=== PATIENT | female | born 1955 | race Caucasian/White ===

== ENCOUNTER 2017-04-13 17:55 | Emergency (ER) | payer MEDICARE ==
[2017-04-13 18:11] VITALS: BP 120/68; PULSE 68; RESP 18; TEMP 97.9
--- NOTE | 2017-04-13 18:38 | XR ---
EXAMINATION TYPE: XR knee complete LT DATE OF EXAM: 04/13/2017 6:32 PM COMPARISON: NONE HISTORY: Knee pain TECHNIQUE: 3 views FINDINGS: I see no displaced fracture. There is minimal subtle lucency at the head of the fibula that could relate to a nondisplaced fracture. There is probably a small knee joint effusion. Joint space s are normal. IMPRESSION: Possible nondisplaced fracture of the neck of the fibula head. Small knee joint effusion.
--- NOTE | 2017-04-13 18:41 | XR ---
EXAMINATION TYPE: XR wrist complete LT DATE OF EXAM: 04/13/2017 6:35 PM COMPARISON: NONE HISTORY: Pain TECHNIQUE: 4 views FINDINGS: There is posterior subluxation of the lunate and scaphoid on the lateral view. There is pro bably a chip fracture of the posterior distal radius on the lateral view. Distal ulna appears intact. IMPRESSION: There is evidence of a partial posterior lunate dislocation. Chip fracture of the posteri or distal radius. Osteoarthritis noted at the first carpometacarpal joint.
--- NOTE | 2017-04-13 18:42 | ED ---
Fall HPI - General Chief Complaint: Fall Stated Complaint: LEFT WRIST AND KNEE INJURY FROM FALL Time Seen by Provider: 04/13/17 18:19 Source: patient, RN notes reviewed, old records reviewed Mode of arrival: ambulatory - History of Present Illness Initial Comments: Is a 62-year-old female presents emergency Department with chief complaint of left wrist and left knee pain after falling while tripping on occur. She denies any headache or loss of consciousness. Denies any head injury. Patient reports that she fell with outstretched hand. She reports that also has irritation and pain on the right hand. Patient states that there is no decreased range of motion with wrist or hands her knees. She states that she broke her wrist previously. She denies any previous injuries. Patient reports she has a small abrasion over the knee.Patient denies any recent fever, chills, shortness of breath, chest pain, back pain, abdominal pain, nausea vomiting, numbness or tingling, dysuria or hematuria, constipation or diarrhea, headaches or visual changes, or any other current symptoms - Related Data Home Medications Medication Instructions Recorded Confirmed FLUoxetine HCL [PROzac] 10 mg PO DAILY 03/17/15 10/23/16 Lisinopril [Prinivil] 5 mg PO DAILY 03/17/15 10/23/16 ALPRAZolam [Xanax] 0.25 mg PO BID PRN 04/18/16 10/23/16 Ibuprofen [Motrin] 200 mg PO Q6HR PRN 04/18/16 10/23/16 Meclizine [Antivert] 12.5 mg PO DAILY 04/18/16 10/23/16 Previous Rx's Medication Instructions Recorded Omeprazole [PriLOSEC] 40 mg PO AC-BRKFST #30 cap 03/17/15 Allergies Allergy/AdvReac Type Severity Reaction Status Date / Time amoxicillin Allergy Unknown Verified 04/13/17 18:11 azithromycin Allergy Rash/Hives Verified 04/13/17 18:11 erythromycin base Allergy Unknown Verified 04/13/17 18:11 methylprednisolone Allergy Unknown Verified 04/13/17 18:11 [From Medrol] ofloxacin [From Floxin] Allergy Rash/Hives Verified 04/13/17 18:11 Sulfa (Sulfonamide Allergy Rash/Hives Verified 04/13/17 18:11 Antibiotics) sulfamethoxazole Allergy Rash/Hives Verified 04/13/17 18:11 [From Bactrim] trimethoprim [From Bactrim] Allergy Rash/Hives Verified 04/13/17 18:11 "mycin" family Allergy Unknown Uncoded 04/13/17 18:11 Review of Systems ROS Statement: Those systems with pertinent positive or pertinent negative responses have been documented in the HPI. ROS Other: All systems not noted in ROS Statement are negative. 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 No acute distress. Limitations: no limitations General appearance: alert, in no apparent distress Head exam: Present: atraumatic, normocephalic, normal inspection Eye exam: Present: normal appearance, PERRL, EOMI. Absent: scleral icterus, conjunctival injection, periorbital swelling ENT exam: Present: normal exam, mucous membranes moist Neck exam: Present: normal inspection. Absent: tenderness, meningismus, lymphadenopathy Respiratory exam: Present: normal lung sounds bilaterally. Absent: respiratory distress, wheezes, rales, rhonchi, stridor Cardiovascular Exam: Present: regular rate, normal rhythm, normal heart sounds. Absent: systolic murmur, diastolic murmur, rubs, gallop, clicks GI/Abdominal exam: Present: soft, normal bowel sounds. Absent: distended, tenderness, guarding, rebound, rigid Extremities exam: Present: normal inspection, full ROM, normal capillary refill. Absent: tenderness, pedal edema, joint swelling, calf tenderness Left Upper Arm exam: Present: normal inspection, full ROM Elbow exam: Present: normal inspection, full ROM Forearm Wrist exam: Present: normal inspection, full ROM Hand Wrist exam: Present: normal inspection, full ROM Neuro motor exam: Present: wrist extension intact, thumb opposition intact, thumb IP flexion intact, thumb adduction intact, fingers 2-5 abduction intact Vascular: Present: normal capillary refill Left Upper Leg exam: Present: normal inspection, full ROM Knee exam: Present: normal inspection, full ROM, tenderness (over medial meniscus), abrasion (minor abrasion) Lower Leg exam: Present: normal inspection, full ROM Ankle exam: Present: normal inspection, full ROM Foot/Toe exam: Present: normal inspection, full ROM Back exam: Present: normal inspection, full ROM Neurological exam: Present: alert, oriented X3, CN II-XII intact, normal gait Psychiatric exam: Present: normal affect, normal mood Skin exam: Present: warm, dry, intact, normal color. Absent: rash Course Vital Signs 04/13/17 18:07 Temperature 97.9 F Pulse Rate 68 Respiratory 18 Rate Blood Pressure 120/68 O2 Sat by Pulse 99 Oximetry Medical Decision Making - Medical Decision Making s a 62-year-old female presents emergency Department with chief complaint of left wrist and left knee pain after falling while tripping on occur. She denies any headache or loss of consciousness. Denies any head injury. Patient reports that she fell with outstretched hand. She reports that also has irritation and pain on the right hand. Patient states that there is no decreased range of motion with wrist or hands her knees. She states that she broke her wrist previously. She denies any previous injuries. Patient reports she has a small abrasion over the knee. X-rays of the knee and wrist are obtained. Wrist x-ray shows evidence of lunate dislocation. Patient does have a welling and mild deformity. Patient was placed in a volar splint. Patient also seemed knee x-rays which showed possible lucency over the fibular head. Patient was placed in a knee immobilizer. Patient will be discharged with prescription for anti- inflammatory medicine discussed following up with primary care provider and orthopedic physician on Sunday. Patient agrees treatment plan will comply. Discussed be nonweightbearing over her leg or the weekend - Radiology Data Radiology results: report reviewed Evidence of a partial posterior lunate dislocation. Chip fracture of the posterior distal radius. First arthritis noted the first carpal metacarpal joint. No displaced fracture. Minimal subtle lucency at the head of the fibula that could relate to a nondisplaced fracture. There is probably a small minimally the joint effusion. Joint spaces are normal. Impression is a possible nondisplaced fracture of the neck of the fibula head. Small knee joint effusion. Disposition Clinical Impression: Dislocation of lunate bone of wrist, Fracture of head of fibula Disposition: HOME SELF-CARE Condition: Good Instructions: Leg Fracture (ED), Wrist Fracture in Adults (ED) Additional Instructions: Rest, ice, and elevate wrist and knee. Remain in knee immobilizer until in bed. Remain In splint at all times. Patient advised to follow-up with Orthopedic Physician on Sunday. Return to the emergency department if any alarming signs or symptoms occur. Referrals: Jean Marie Pereira MD [Primary Care Provider] - 1-2 days Luigi Romero PAC [PHYSICIAN TURNAROUND ENGINEER] - 1-2 days Time of Disposition: 19:09
== END 2017-04-13 19:08 | disposition home or self-care (01) ==
LOC: EC 17:55
DX: S63.095A Other dislocation of left wrist and hand, initial encounter (principal); S52.502A Unspecified fracture of the lower end of left radius, initial encounter for closed fracture; S82.832A Other fracture of upper and lower end of left fibula, initial encounter for closed fracture; M18.12 Unilateral primary osteoarthritis of first carpometacarpal joint, left hand; M25.462 Effusion, left knee; M79.641 Pain in right hand; I10 Essential (primary) hypertension; F32.9 Major depressive disorder, single episode, unspecified; Z87.891 Personal history of nicotine dependence; Z79.899 Other long term (current) drug therapy; Z88.0 Allergy status to penicillin; Z88.1 Allergy status to other antibiotic agents; Z88.2 Allergy status to sulfonamides; Z88.8 Allergy status to other drugs, medicaments and biological substances; W01.0XXA Fall on same level from slipping, tripping and stumbling without subsequent striking against object, initial encounter; Y93.89 Activity, other specified
CPT/HCPCS: 29125; 99284

== ENCOUNTER → 2017-08-17 | Outpatient (CLI) | payer MEDICARE ==
[2017-08-17 16:36] LABS: Blood Urea Nitrogen 10 mg/dL (7-17); Non-African American GFR(MDRD) >60 (>60 ml/min/1.73 sqM)
== END | disposition home or self-care (01) ==
LOC: LABWHC1 15:56
PROVIDERS: ATTEND Otolaryngology Otology & Neurotology
DX: D33.3 Benign neoplasm of cranial nerves (principal)
CPT/HCPCS: 36415; 82565; 84520

== ENCOUNTER → 2017-08-20 | Outpatient (CLI) | payer MEDICARE ==
--- NOTE | 2017-08-20 07:45 | MR ---
EXAMINATION TYPE: MR brain and iac wo/w con DATE OF EXAM: 08/20/2017 COMPARISON: 08/16/2015 HISTORY: brain stem lesion, bilateral hearing loss, vertigo CONTRAST: Performed utilizing 6.5 mL intravenous Gadavist gadolinium contrast. TECHNIQUE: Multiplanar, multiecho imaging on a 3.0 Veronica magnet is performed through the brain. Atte ntion is paid to the internal auditory canals with thin section imaging. Postcontrast imaging is per formed through the internal auditory canals. FINDINGS:Craniovertebral junction is normal. The pituitary is normal. Flow voids are within the vis ualized intracranial cerebral vasculature. The anterior communicating artery is widely patent. Diffusion-weighted imaging is performed. No suspicious hyperintensity is present to suggest an acute intracranial infarct or acute ischemic area. There is mild periventricular white matter ischemic type changes. A punctate hyperintensity is in the subcortical right parietal lobe. Series 501 image 21. Findings are stable from comparison. Thin section imaging is performed through the internal auditory canals and cerebellar pontine angles. No cerebellar pontine angle masses are evident. The internal auditory canals appear normal without expansion or erosion. No fluid in the mastoid air cell regions are evident. Postcontrast imaging was performed. No suspicious enhancement is evident within the internal audito ry canals or the included portions of the brain. IMPRESSIONS: 1. Mild periventricular white matter changes, stable from 2015. 2. No suspicious internal auditory canal changes. 3. No brainstem abnormality evident.
== END | disposition home or self-care (01) ==
LOC: RADMRIMAIN 06:20
PROVIDERS: ATTEND Otolaryngology Otology & Neurotology
DX: R90.82 White matter disease, unspecified (principal)
CPT/HCPCS: 70553; A9581

== ENCOUNTER → 2018-08-26 | Outpatient (CLI) | payer MEDICARE ==
--- NOTE | 2018-08-27 10:10 | MM ---
Reason for exam: screening (asymptomatic). Last mammogram was performed 2 years and 5 months ago. History: Patient is postmenopausal. Physical Findings: A clinical breast exam by your physician is recommended on an annual basis and results should be correlated with mammographic findings. MG 3D Screening Mammo W/Cad Bilateral CC and MLO view(s) were taken. XCCL view(s) were taken of the left breast. Technologist: RT Marcy (R)(M) Prior study comparison: March 14, 2016, bilateral MG 3d screening mammo w/cad. September 28, 2014, bilateral MG screening mammo w CAD. The breast tissue is heterogeneously dense. This may lower the sensitivity of mammography. Benign calcifications. There is chronic nodularity bilaterally. No significant changes when compared with prior studies. ASSESSMENT: Benign, BI-RAD 2 RECOMMENDATION: Routine screening mammogram of both breasts in 1 year.
== END | disposition home or self-care (01) ==
LOC: RADMAMWWP 13:11
PROVIDERS: ATTEND Family Medicine
DX: Z12.31 Encounter for screening mammogram for malignant neoplasm of breast (principal)
CPT/HCPCS: 77063; 77067

== ENCOUNTER → 2019-04-21 | Outpatient (CLI) | payer MEDICARE ==
--- NOTE | 2019-04-22 10:21 | BD ---
EXAMINATION TYPE: Axial Bone Density DATE OF EXAM: 04/21/2019 COMPARISON: 03/14/2016 CLINICAL HISTORY: Postmenopausal Height: 63.5 IN Weight: 140 LBS FRAX RISK QUESTIONS: History of Fracture in Adulthood: YES LT SHOULDER 58 AND LT HEEL AGE 58 AND LT WRIST AGE 59 Secondary Osteoporosis: 3. Menopause before 45: YES PART HYST AGE 34 RISK FACTORS HISTORY OF: History of Wrist Fracture: LT WRIST AGE 59 Family History of Osteoporosis: YES FATHER, MOTHER Active: MODERATE Diet low in dairy products/other sources of calcium: YES Postmenopausal woman: AGE 34 PARTIAL HYST MEDICATIONS: Additional Medications: IBUPROFEN, VIT D, CALCIUM, BIOTIN, B12,FISH OIL, PROBIOTICS, EXAM MEASUREMENTS: Bone mineral densitometry was performed using the [employer] System. Bone mineral density as measured about the Lumbar spine is: ----- L1-L4(G/cm2): 1.072 T Score Values are as follows: ----- L2: -0.4 ----- L3: -0.5 ----- L4: -1.9 ----- L1-L4: -0.9 Bone mineral density has: Increased 2.9% since study of: 03/14/2016 Bone mineral density about the R hip (g/cm2): 0.720 Bone mineral density about the L hip (g/cm2): 0.721 T Score values are as follows: -----R Neck: -2.3 -----L Neck: -2.3 -----R Total: -2.4 -----L Total: -2.6 Bone mineral density has: Increased 0.1% since study of: 03/14/2016 IMPRESSION: Osteopenia (T Score between -2.5 and -1). There is slightly increased risk of fracture and the patient may be considered for treatment. Re-Screen 2-5 years. NOTE: T-SCORE=SD OF THE YOUNG ADULT MEAN.
== END | disposition home or self-care (01) ==
LOC: RADBDWWP 16:15
PROVIDERS: ATTEND Family Medicine
DX: M85.851 Other specified disorders of bone density and structure, right thigh (principal); M85.852 Other specified disorders of bone density and structure, left thigh; M85.88 Other specified disorders of bone density and structure, other site; Z78.0 Asymptomatic menopausal state
CPT/HCPCS: 77080

== ENCOUNTER 2019-10-10 10:50 | Day surgery (SDC) | payer MEDICARE ==
[2019-10-09 09:32] VITALS: BMI 24.7
[~2019-10-10 10:50] MED LIST: LACTATED RINGERS 1,000 ML IV SCH; LIDOCAINE 1% 20 ML VIAL (10MG/ML) FOR IV START INTRADERMA PRN
[2019-10-10 11:26] VITALS: RESP 16; TEMP 97.7
[2019-10-10] MEDS ORDERED: ALBUTEROL NEBULIZED 2.5 MG/3 ML INHALATION STA (11:41)
[2019-10-10] MEDS ORDERED: PROPOFOL 10 MG/ML 20 ML VIAL IV ONE (12:17)
[2019-10-10] MEDS ORDERED: LIDOCAINE 1% INJ 10MG/ML (20 ML MDV) ONE (12:17)
--- NOTE | 2019-10-10 12:38 | P.PCN ---
Date of Procedure: 10/10/19 Procedure(s) Performed: BRIEF HISTORY: Patient is a 64-year-old pleasant white female scheduled for an elective colonoscopy as a part of prior history of colon polyps. Last colonoscopy was 5 years ago. PROCEDURE PERFORMED: Colonoscopy. PREOPERATIVE DIAGNOSIS: History of colon polyps. IV sedation per Anesthesia. PROCEDURE: After informed consent was obtained, the patient, was brought into the endoscopy unit. IV sedation was administered by Anesthesia under continuous monitoring. Digital rectal examination was normal. Initially the Olympus CF-160 flexible video colonoscope was then inserted in the rectum, gradually advanced into the cecum without any difficulty. Careful examination was performed as the scope was gradually being withdrawn. Ileocecal valve and the appendiceal orifice were visualized and appeared normal. Prep was excellent. Mucosa of the cecum, ascending colon, transverse colon, descending colon, sigmoid colon, and rectum appeared normal. Retroflexion was performed in the rectum and weight 2 internal hemorrhoids were seen. The patient tolerated the procedure well. IMPRESSION: Normal-appearing colon from rectum to cecum with no evidence of colorectal neoplasia. Grade 2 internal hemorrhoids RECOMMENDATIONS: Findings of this examination were discussed with the patient well as her family. She was advised to have a repeat screening colonoscopy in 5 years from now because of the prior history of colon polyps.
[2019-10-10 12:44] VITALS: PULSE 79
[2019-10-10 13:00] VITALS: BP 146/74
== END 2019-10-10 13:33 | disposition home or self-care (01) ==
LOC: ORWHC2ENDO 10:50
PROVIDERS: ATTEND Internal Medicine Gastroenterology
DX: Z12.11 Encounter for screening for malignant neoplasm of colon (principal); K64.1 Second degree hemorrhoids; Z86.010 Personal history of colon polyps; I10 Essential (primary) hypertension; J45.909 Unspecified asthma, uncomplicated; Z87.891 Personal history of nicotine dependence; Z86.73 Personal history of transient ischemic attack (TIA), and cerebral infarction without residual deficits; M19.90 Unspecified osteoarthritis, unspecified site; H91.90 Unspecified hearing loss, unspecified ear; K21.9 Gastro-esophageal reflux disease without esophagitis; Z90.710 Acquired absence of both cervix and uterus; Z79.51 Long term (current) use of inhaled steroids; Z79.899 Other long term (current) drug therapy; Z88.6 Allergy status to analgesic agent; Z88.1 Allergy status to other antibiotic agents; Z88.2 Allergy status to sulfonamides; Z88.8 Allergy status to other drugs, medicaments and biological substances
CPT/HCPCS: 94640; J2001; J2704; G0105; 45378

== ENCOUNTER → 2019-10-13 | Outpatient (CLI) | payer MEDICARE ==
--- NOTE | 2019-10-13 12:05 | CT ---
EXAMINATION TYPE: CT sinus wo con DATE OF EXAM: 10/13/2019 COMPARISON: None HISTORY: Chronic sinusitis CT DLP: 615.[address] of the paranasal sinuses was performed in the axial and coronal planes. Bone and soft tissue settings are submitted. The paranasal sinuses demonstrate normal aeration and development. The paranasal sinuses are free of mucosal thickening or air fluid level. The osteal meatal units are patent bilaterally. The nasal septum is midline. No bony destructive changes are seen within the field of view. IMPRESSION: Normal unenhanced CT of the paranasal sinuses.
== END | disposition home or self-care (01) ==
LOC: RADCTMAIN 11:28
PROVIDERS: ATTEND Otolaryngology
DX: J32.9 Chronic sinusitis, unspecified (principal)
CPT/HCPCS: 70486

== ENCOUNTER → 2019-10-22 | Outpatient (CLI) | payer MEDICARE ==
--- NOTE | 2019-10-24 12:16 | MM ---
Reason for exam: screening (asymptomatic). Last mammogram was performed 1 year and 2 months ago. History: Patient is postmenopausal. Physical Findings: A clinical breast exam by your physician is recommended on an annual basis and results should be correlated with mammographic findings. MG 3D Screening Mammo W/Cad Bilateral CC and MLO view(s) were taken. Prior study comparison: August 26, 2018, bilateral MG 3d screening mammo w/cad. March 14, 2016, bilateral MG 3d screening mammo w/cad. The breast tissue is heterogeneously dense. This may lower the sensitivity of mammography. No significant changes when compared with prior studies. ASSESSMENT: Benign, BI-RAD 2 RECOMMENDATION: Routine screening mammogram of both breasts in 1 year.
== END | disposition home or self-care (01) ==
LOC: RADMAMWWP 13:09
PROVIDERS: ATTEND Family Medicine
DX: Z12.31 Encounter for screening mammogram for malignant neoplasm of breast (principal)
CPT/HCPCS: 77063; 77067

== ENCOUNTER 2020-10-13 08:56 | Day surgery (SDC) | payer MEDICARE ==
[2020-10-11 11:58] VITALS: BMI 22.6
[~2020-10-13 08:56] MED LIST changes: -LIDOCAINE 1% 20 ML VIAL (10MG/ML) FOR IV START INTRADERMA PRN
[2020-10-13] MEDS ORDERED: LIDOCAINE 1% (10MG/ML) FOR IV START INTRADERMA ONE (09:40)
[2020-10-13 09:53] VITALS: RESP 16; TEMP 97
[2020-10-13] MEDS ORDERED: LIDOCAINE 1% INJ 10MG/ML (20 ML MDV) ONE (10:19)
[2020-10-13] MEDS ORDERED: PROPOFOL 10 MG/ML 20 ML VIAL IV ONE (10:19)
--- NOTE | 2020-10-13 10:29 | P.PCN ---
Date of Procedure: 10/13/20 Procedure(s) Performed: BRIEF HISTORY: Patient is a 65-year-old, pleasant, female scheduled for an upper endoscopy as a part of evaluation of long-standing history of GERD years duration.. She is presently on Prilosec 20 mg daily PROCEDURE PERFORMED: Esophagogastroduodenoscopy with biopsy . PREOPERATIVE DIAGNOSIS: [GERD IV sedation per anesthesia. PROCEDURE: After informed consent was obtained, the patient was brought into the endoscopy unit. IV sedation was administered by Anesthesia under continuous monitoring. Initially the Olympus GIF-140 video endoscope was inserted into the mouth. Esophagus intubated without any difficulty. It was gradually advanced into the stomach and duodenum and carefully examined. The bulb and the second part of the duodenum appeared normal. The scope at this time was withdrawn to the stomach, adequately insufflated with air, and upon careful examination, mu cosa of the antrum@gastritis and biopsies were done from this area. There were multiple small polyps noted in the proximal body the stomach which were biopsied. Rest of the body, cardia and the fundus appeared normal. The scope was then withdrawn into the esophagus. The GE junction was located at 41 cm from the incisors. The esophagus appeared normal. There were no erosions or ulcerations seen and the patient tolerated the procedure well. IMPRESSION: 1. Mild antral gastritis 2. Multiple small gastric polyps in the body the stomach status post biopsy 3. Normal-appearing esophagus with no evidence of esophagitis or Holguin's esophagus RECOMMENDATIONS: The findings of this examination were discussed with the patient as well as her family. She was advised to continue with Prilosec 20 mg daily and follow antireflux measures. She can follow up the biopsy results.
[2020-10-13 10:47] VITALS: BP 138/85; PULSE 53
== END 2020-10-13 11:16 | disposition home or self-care (01) ==
LOC: ORWHC2ENDO 08:56
PROVIDERS: ATTEND Internal Medicine Gastroenterology
DX: K29.50 Unspecified chronic gastritis without bleeding (principal); K31.7 Polyp of stomach and duodenum; K21.9 Gastro-esophageal reflux disease without esophagitis; I10 Essential (primary) hypertension; J45.909 Unspecified asthma, uncomplicated; Z88.2 Allergy status to sulfonamides; Z88.8 Allergy status to other drugs, medicaments and biological substances; Z88.5 Allergy status to narcotic agent; Z91.040 Latex allergy status; Z87.891 Personal history of nicotine dependence; Z86.73 Personal history of transient ischemic attack (TIA), and cerebral infarction without residual deficits; Z79.899 Other long term (current) drug therapy
CPT/HCPCS: 88305; 43239; J2001; J2704

== ENCOUNTER 2021-06-29 15:04 | Observation (INO) | payer MEDICARE ==
[2021-06-29] MEDS ORDERED: ASPIRIN 81 MG PO STA (15:50)
--- NOTE | 2021-06-29 16:04 | ED ---
General Adult HPI - General Chief complaint: Chest Pain Stated complaint: Chestpain Time Seen by Provider: 06/29/21 15:24 Source: patient Mode of arrival: wheelchair Limitations: no limitations - History of Present Illness Initial comments: Dictation was produced using [employer] dictation software. please excuse any grammatical, word or spelling errors. Chief Complaint: 66-year-old female presents to the emergency department for chest pain History of Present Illness: 66-year-old female no past medical record her artery disease. She states she does have family history of coronary artery disease. Patient states today while she was at work she began having intermittent episodes of chest pressure. She states that the pain did radiate to her bilateral shoulders. States is substernal. Nonpleuritic. No history of blood clots. Patient states she had multiple episodes today. She went to primary care doctor and had EKG showing nonspecific changes. She was sent to the emergency department for further care. The patient denies any symptoms. Associated nausea and diaphoresis with her chest pain. The ROS documented in this emergency department record has been reviewed and confirmed by me. Those systems with pertinent positive or negative responses have been documented in the HPI. All other systems are other negative and/or noncontributory. PHYSICAL EXAM: General Impression: Alert and oriented x3, not in acute distress HEENT: Normocephalic atraumatic, extra-ocular movements intact, pupils equal and reactive to light bilaterally, mucous membranes moist. Cardiovascular: Heart regular rate and rhythm Chest: Able to complete full sentences, no retractions, no tachypnea Abdomen: abdomen soft, non-tender, non-distended, no organomegaly Musculoskeletal: Pulses present and equal in all extremities, no peripheral e ligia Motor: no focal deficits noted Neurological: CN II-XII grossly intact, no focal motor or sensory deficits noted Skin: Intact with no visualized rashes Psych: Normal affect and mood ED course: 66-year-old well-appearing female percents to the emergency department for evaluation of chest pain. Patient does not have any active chest pain at this time. Signs upon arrival are within acceptable limits. EKG shows ischemic changes to the lateral precordial leads.Repeat EKG was performed showin g no dynamic changes. Still persistent T-wave inversions in the septal lateral precordial leads. Unclearif these changes are chronic or if they're not. Laboratory evaluations obtained. CBC unremarkable. Coag panel is negative. Metabolic panel within acceptable limits. Troponin is negative. Chest x-ray is nonacute. Patient reevaluated bedside at 5 PM is agreeable with admission for cardiac observation, serial troponins and cardiology consultation. Case discussed with son physician Dr. Harrell who is willing to accept patients care. Patient given aspirin. EKG interpretation: Ventricular rate 62, normal sinus rhythm, DE interval 134, QRS 102, QTc 4:30. No DE prolongation, no QTC prolongation, no ST or T-wave changes noted. No EKG for comparison. Overall this EKG is concerning for ischemia. - Related Data Home Medications Medication Instructions Recorded Confirmed Lisinopril [Prinivil] 5 mg PO DAILY 03/17/15 06/29/21 L.acidoph,Paracasei, B.lactis 1 cap PO DAILY 10/09/19 06/29/21 [Probiotic] Loratadine [Claritin] 10 mg PO DAILY 10/09/19 06/29/21 Montelukast [Singulair] 10 mg PO DAILY 10/09/19 06/29/21 Omeprazole [PriLOSEC] 40 mg PO BID 10/09/19 06/29/21 ALPRAZolam [Xanax] 0.5 mg PO Q6H PRN 06/29/21 06/29/21 Aspirin EC [Ecotrin Low Dose] 162 mg PO ONCE PRN 06/29/21 06/29/21 FLUoxetine HCL [PROzac] 40 mg PO DAILY 06/29/21 06/29/21 Ibuprofen [Motrin] 600 mg PO BID PRN 06/29/21 06/29/21 Meclizine [Antivert] 25 mg PO Q12H PRN 06/29/21 06/29/21 Allergies Allergy/AdvReac Type Severity Reaction Status Date / Time amoxicillin Allergy Unknown Verified 06/29/21 16:04 azithromycin Allergy Rash/Hives Verified 06/29/21 16:04 erythromycin base Allergy Unknown Verified 06/29/21 16:04 latex Allergy Itching/aries Verified 06/29/21 16:04 h methylprednisolone Allergy Unknown Verified 06/29/21 16:04 [From Medrol] naproxen [From Naprosyn] Allergy Itching Verified 06/29/21 16:04 ofloxacin [From Floxin] Allergy Rash/Hives Verified 06/29/21 16:04 Sulfa (Sulfonamide Allergy Rash/Hives Verified 06/29/21 16:04 Antibiotics) sulfamethoxazole Allergy Rash/Hives Verified 06/29/21 16:04 [From Bactrim] trimethoprim [From Bactrim] Allergy Rash/Hives Verified 06/29/21 16:04 "mycin" family Allergy Unknown Uncoded 06/29/21 15:10 Review of Systems ROS Statement: Those systems with pertinent positive or pertinent negative responses have been documented in the HPI. ROS Other: All systems not noted in ROS Statement are negative. Past Medical History Past Medical History: Asthma, CVA/TIA, GERD/Reflux, Hypertension, Memory Impairment, Musculoskeletal Disorder, Osteoarthritis (OA), Skin Disorder Additional Past Medical History / Comment(s): Osteoporosis, TIA 5-6 yrs ago-no residual effects, palpitations. Some memory issues at times. Seborrheic Keratosis - have moles all over my body. Vertigo. History of Any Multi-Drug Resistant Organisms: None Reported Past Surgical History: Section, Ear Surgery, Hysterectomy Additional Past Surgical History / Comment(s): Titanium in right ear. Past Anesthesia/Blood Transfusion Reactions: Motion Sickness, Postoperative Nausea & Vomiting (PONV) Additional Past Anesthesia/Blood Transfusion Reaction / Comment(s): Vertigo. Past Psychological History: Depression Smoking Status: Former smoker Past Alcohol Use History: Occasional Past Drug Use History: None Reported - Past Family History Mother Family Medical History: No Reported History Father Family Medical History: Myocardial Infarction ([place]) Brother(s) Family Medical History: Cancer Additional Family Medical History / Comment(s): Lung Cancer. General Exam Limitations: no limitations Course Vital Signs 06/29/21 06/29/21 06/29/21 15:06 15:36 17:00 Temperature 97.9 F Pulse Rate 58 L 62 61 Respiratory 16 20 20 Rate Blood Pressure 110/62 120/86 119/77 O2 Sat by Pulse 99 99 99 Oximetry Medical Decision Making - Lab Data Result diagrams: 06/29/21 15:55 06/29/21 15:55 Lab Results 06/29/21 06/29/21 06/29/21 Range/Units 15:55 15:55 15:55 WBC 10.3 (3.8-10.6) k/uL RBC 3.68 L (3.80-5.40) m/uL Hgb 11.7 (11.4-16.0) gm/dL Hct 33.6 L (34.0-46.0) % MCV 91.4 (80.0-100.0) fL MCH 31.8 (25.0-35.0) pg MCHC 34.8 (31.0-37.0) g/dL RDW 13.5 (11.5-15.5) % Plt Count 336 (150-450) k/uL MPV 8.9 Neutrophils % 78 % Lymphocytes % 17 % Monocytes % 3 % Eosinophils % 0 % Basophils % 1 % Neutrophils # 8.0 H (1.3-7.7) k/uL Lymphocytes # 1.7 (1.0-4.8) k/uL Monocytes # 0.3 (0-1.0) k/uL Eosinophils # 0.0 (0-0.7) k/uL Basophils # 0.1 (0-0.2) k/uL PT 10.2 (9.0-12.0) sec INR 0.9 (<1.2) APTT 22.3 (22.0-30.0) sec Sodium 135 L (137-145) mmol/L Potassium 4.7 (3.5-5.1) mmol/L Chloride 101 (98-107) mmol/L Carbon Dioxide 23 (22-30) mmol/L Anion Gap 11 mmol/L BUN 27 H (7-17) mg/dL Creatinine 1.41 H (0.52-1.04) mg/dL Est GFR (CKD-EPI)AfAm 45 (>60 ml/min/1.73 sqM) Est GFR (CKD-EPI)NonAf 39 (>60 ml/min/1.73 sqM) Glucose 110 H (74-99) mg/dL Calcium 10.3 H (8.4-10.2) mg/dL Magnesium 2.1 (1.6-2.3) mg/dL Total Bilirubin 0.3 (0.2-1.3) mg/dL AST 27 (14-36) U/L ALT 11 (4-34) U/L Alkaline Phosphatase 71 (38-126) U/L Troponin I (0.000-0.034) ng/mL Total Protein 7.4 (6.3-8.2) g/dL Albumin 4.7 (3.5-5.0) g/dL 06/29/21 Range/Units 15:55 WBC (3.8-10.6) k/uL RBC (3.80-5.40) m/uL Hgb (11.4-16.0) gm/dL Hct (34.0-46.0) % MCV (80.0-100.0) fL MCH (25.0-35.0) pg MCHC (31.0-37.0) g/dL RDW (11.5-15.5) % Plt Count (150-450) k/uL MPV Neutrophils % % Lymphocytes % % Monocytes % % Eosinophils % % Basophils % % Neutrophils # (1.3-7.7) k/uL Lymphocytes # (1.0-4.8) k/uL Monocytes # (0-1.0) k/uL Eosinophils # (0-0.7) k/uL Basophils # (0-0.2) k/uL PT (9.0-12.0) sec INR (<1.2) APTT (22.0-30.0) sec Sodium (137-145) mmol/L Potassium (3.5-5.1) mmol/L Chloride (98-107) mmol/L Carbon Dioxide (22-30) mmol/L Anion Gap mmol/L BUN (7-17) mg/dL Creatinine (0.52-1.04) mg/dL Est GFR (CKD-EPI)AfAm (>60 ml/min/1.73 sqM) Est GFR (CKD-EPI)NonAf (>60 ml/min/1.73 sqM) Glucose (74-99) mg/dL Calcium (8.4-10.2) mg/dL Magnesium (1.6-2.3) mg/dL Total Bilirubin (0.2-1.3) mg/dL AST (14-36) U/L ALT (4-34) U/L Alkaline Phosphatase (38-126) U/L Troponin I <0.012 (0.000-0.034) ng/mL Total Protein (6.3-8.2) g/dL Albumin (3.5-5.0) g/dL Disposition Clinical Impression: Chest pain Disposition: ADMITTED IP TO THIS HOSP Condition: Fair Referrals: Jean Marie Pereira MD [Primary Care Provider] - 1-2 days
[2021-06-29 16:10] LABS: Basophils # (A) 0.1 k/uL (0-0.2); Basophils % (A) 1 %; Eosinophils % (A) 0 %; HCT 33.6 % (34.0-46.0); HGB 11.7 gm/dL (11.4-16.0); Lymphocytes # (A) 1.7 k/uL (1.0-4.8); Lymphocytes % (A) 17 %; MCH 31.8 pg (25.0-35.0); MCHC 34.8 g/dL (31.0-37.0); MCV 91.4 fL (80.0-100.0); Mean Platelet Volume 8.9; Monocytes # (A) 0.3 k/uL (0-1.0); Monocytes % (A) 3 %; Neutrophils % (A) 78 %; Platelet Count 336 k/uL (150-450); RBC 3.68 m/uL (3.80-5.40); RDW 13.5 % (11.5-15.5); WBC 10.3 k/uL (3.8-10.6)
[2021-06-29 16:15] LABS: INR 0.9 (<1.2); Partial Thromboplastin Time 22.3 sec (22.0-30.0); Prothrombin Time 10.2 sec (9.0-12.0)
[2021-06-29 16:16] LABS: Albumin 4.7 g/dL (3.5-5.0); Calcium 10.3 mg/dL (8.4-10.2); Magnesium 2.1 mg/dL (1.6-2.3); Potassium 4.7 mmol/L (3.5-5.1); Total Bilirubin 0.3 mg/dL (0.2-1.3); Total Protein 7.4 g/dL (6.3-8.2)
[2021-06-29] MEDS ORDERED: NITROGLYCERIN SL TABS 0.4 MG TAB SUBLINGUAL PRN (17:13)
--- NOTE | 2021-06-29 17:37 | XR ---
EXAMINATION TYPE: XR chest 2V DATE OF EXAM: 06/29/2021 COMPARISON: NONE HISTORY: Chest pain. TECHNIQUE: Frontal and lateral views of the chest are obtained. FINDINGS: There is no focal air space opacity, pleural effusion, or pneumothorax seen. The cardiac silhouette size is within normal limits. The osseous structures are intact. IMPRESSION: No acute cardiopulmonary process.
[2021-06-29] MEDS ORDERED: NALOXONE 0.4 MG/ML 1 ML VIAL IV PRN (17:46)
[2021-06-29] MEDS ORDERED: HYDROcodone/APAP 5-325MG 1 EACH TAB PO PRN (17:46)
[2021-06-29] MEDS ORDERED: ASPIRIN 81 MG PO PRN (17:47)
[2021-06-29] MEDS ORDERED: ALPRAZolam 0.5 MG TAB PO PRN (17:47)
[2021-06-29] MEDS ORDERED: MECLIZINE 25 MG TAB PO PRN (17:47)
--- NOTE | 2021-06-29 18:05 | P.HPIM ---
History of Present Illness H&P Date: 06/29/21 Chief Complaint: chest pain Patient is a 66-year-old female with a history of hypertension, prior TIA, palpitations, and multiple other comorbid conditions who initially presented to Dr. Link's office with complaints of chest pain. She was evaluated there and instructed to go to the ER. On arrival here she underwent an EKG which showed nonspecific ST-T wave changes. Initial vital signs within normal limits and troponin was negative. She was given an aspirin and was placed in observation for chest pain. Chest x-ray is reviewed by me shows no acute process. She was at work at the [employer] when she developed retrosternal chest pain associated with pain up into her neck and down her arm. She did feels that she could not catch her breath. She was also having some nausea, lightheadedness, presyncope, was seeing floaters. She reports the chest pain lasted approx imately 3 hours until she went to her primary care physician's office and she has no history of chest pain or myocardial infarction in the past. He father did at age 63 of an CA. She does have a history of acid reflux and is supposed to take her omeprazole twice daily but she takes this once daily. She denies any recent stuffy nose, or sore throat. She denies any recent cough, cold, fever, flu. She does state that she had dark black sticky stools this morning. This is unusual for her. She denies any sick contacts. She reports that she has not had a COVID vaccine, she does report that she has difficulty breathing through her mass secondary to her asthma and often wears a follow her nose at the salon. Pertinent positives and negatives as discussed in HPI, a complete review of sy stems was performed and all other systems are negative. General: non toxic, no distress, appears at stated age Derm: warm, dry Head: atraumatic, normocephalic, symmetric Eyes: EOMI, no lid lag, anicteric sclera, pupils equal round reactive to light ENT: Nose and ears atraumatic, no thrush, no pharyngeal erythema Neck: No thyromegaly, no cervical lymphadenopathy, trachea midline, supple Mouth: no lip lesion, mucus membranes moist Cardiovascular: S1S2 reg, no murmur, positive posterior tibial pulse bilateral, no edema, capillary refill less than 2 seconds Lungs: clear to ascultation bilateral, no ronchi, no rales, no wheeze, no accessory muscle use Abdominal: soft, nontender to palpation, no guarding, no appreciable organomegaly, normal bowel sounds Ext: no gross muscle atrophy, muscle strength muscle strength 5 out of 5 in all 4 extremities, no contractures Neuro: CN II-XI grossly intact, light touch intact all 4 extremities, finger to nose within normal limits, Psych: Alert, oriented, appropriate affect Chest pain - possible ACS VS GERD VS Costochondritis - ASA, statin - no heparin gtt unless trop + or chest pain recurs with melena. - NPO after midnight - Consult Cardio Melena - IV PPI - Serial CBC - if HgB decreases then consult GI JULIÁN VS CKD with unknown recent creatinine - IVF - Hold ibuprofen - repeat in AM - avoid nephrotoxic agents GERD -PPI Hypertension - resume lisinopril - follow BP Chronic: Asthma Osteoarthritis Osteoporosis Seborrheic keratosis History of prior TIA Past Medical History Past Medical History: Asthma, CVA/TIA, GERD/Reflux, Hypertension, Memory Impairment, Musculoskeletal Disorder, Osteoarthritis (OA), Skin Disorder Additional Past Medical History / Comment(s): Osteoporosis, TIA 5-6 yrs ago-no residual effects, palpitations. Some memory issues at times. Seborrheic Keratosis - have moles all over my body. Vertigo. History of Any Multi-Drug Resistant Organisms: None Reported Past Surgical History: Section, Ear Surgery, Hysterectomy Additional Past Surgical History / Comment(s): Titanium in right ear. Past Anesthesia/Blood Transfusion Reactions: Motion Sickness, Postoperative Nausea & Vomiting (PONV) Additional Past Anesthesia/Blood Transfusion Reaction / Comment(s): Vertigo. Past Psychological History: Depression Smoking Status: Former smoker Past Alcohol Use History: Occasional Past Drug Use History: None Reported - Past Family History Mother Family Medical History: No Reported History Father Family Medical History: Myocardial Infarction ([place]) Brother(s) Family Medical History: Cancer, Hypertension Additional Family Medical History / Comment(s): Lung Cancer. Medications and Allergies Home Medications Medication Instructions Recorded Confirmed Type Lisinopril [Prinivil] 5 mg PO DAILY 03/17/15 06/29/21 History L.acidoph,Paracasei, B.lactis 1 cap PO DAILY 10/09/19 06/29/21 History [Probiotic] Loratadine [Claritin] 10 mg PO DAILY 10/09/19 06/29/21 History Montelukast [Singulair] 10 mg PO DAILY 10/09/19 06/29/21 History Omeprazole [PriLOSEC] 40 mg PO BID 10/09/19 06/29/21 History ALPRAZolam [Xanax] 0.5 mg PO Q6H PRN 06/29/21 06/29/21 History Aspirin EC [Ecotrin Low Dose] 162 mg PO ONCE PRN 06/29/21 06/29/21 History FLUoxetine HCL [PROzac] 40 mg PO DAILY 06/29/21 06/29/21 History Ibuprofen [Motrin] 600 mg PO BID PRN 06/29/21 06/29/21 History Meclizine [Antivert] 25 mg PO Q12H PRN 06/29/21 06/29/21 History Allergies Allergy/AdvReac Type Severity Reaction Status Date / Time amoxicillin Allergy Unknown Verified 06/29/21 16:04 azithromycin Allergy Rash/Hives Verified 06/29/21 16:04 erythromycin base Allergy Unknown Verified 06/29/21 16:04 latex Allergy Itching/aries Verified 06/29/21 16:04 h methylprednisolone Allergy Unknown Verified 06/29/21 16:04 [From Medrol] naproxen [From Naprosyn] Allergy Itching Verified 06/29/21 16:04 ofloxacin [From Floxin] Allergy Rash/Hives Verified 06/29/21 16:04 Sulfa (Sulfonamide Allergy Rash/Hives Verified 06/29/21 16:04 Antibiotics) sulfamethoxazole Allergy Rash/Hives Verified 06/29/21 16:04 [From Bactrim] trimethoprim [From Bactrim] Allergy Rash/Hives Verified 06/29/21 16:04 "mycin" family Allergy Unknown Uncoded 06/29/21 15:10 Physical Exam Osteopathic Statement: *. No significant issues noted on an osteopathic structural exam other than those noted in the History and Physical/Consult. Vitals: Vital Signs Temp Pulse Resp BP Pulse Ox 06/29/21 17:00 61 20 119/77 99 06/29/21 15:36 62 20 120/86 99 06/29/21 15:06 97.9 F 58 L 16 110/62 99 Intake and Output 06/29/21 06/29/21 06/29/21 06:59 14:59 22:59 Other: Weight 60.328 kg Results CBC & Chem 7: 06/29/21 15:55 06/29/21 15:55 Labs: Abnormal Lab Results - Last 24 Hours (Table) 06/29/21 06/29/21 Range/Units 15:55 15:55 RBC 3.68 L (3.80-5.40) m/uL Hct 33.6 L (34.0-46.0) % Neutrophils # 8.0 H (1.3-7.7) k/uL Sodium 135 L (137-145) mmol/L BUN 27 H (7-17) mg/dL Creatinine 1.41 H (0.52-1.04) mg/dL Glucose 110 H (74-99) mg/dL Calcium 10.3 H (8.4-10.2) mg/dL
[2021-06-29] MEDS: PANTOPRAZOLE 40 MG/10 ML VIAL IVP SCH (19:58)
[2021-06-29 21:53] LABS: HCT 27.6 % (34.0-46.0); MCH 31.1 pg (25.0-35.0); MCHC 33.8 g/dL (31.0-37.0); MCV 92.1 fL (80.0-100.0); Mean Platelet Volume 9.3; Platelet Count 230 k/uL (150-450); RDW 13.6 % (11.5-15.5); WBC 8.2 k/uL (3.8-10.6)
[2021-06-29 21:56] LABS: HGB 9.3 gm/dL (11.4-16.0)
[2021-06-30 04:58] LABS: Basophils # (A) 0.1 k/uL (0-0.2); Basophils % (A) 1 %; Eosinophils # (A) 0.1 k/uL (0-0.7); Eosinophils % (A) 1 %; HCT 26.8 % (34.0-46.0); HGB 9.4 gm/dL (11.4-16.0); Lymphocytes # (A) 2.9 k/uL (1.0-4.8); Lymphocytes % (A) 35 %; MCH 31.6 pg (25.0-35.0); MCHC 34.9 g/dL (31.0-37.0); MCV 90.3 fL (80.0-100.0); Mean Platelet Volume 8.2; Monocytes # (A) 0.4 k/uL (0-1.0); Monocytes % (A) 5 %; Neutrophils # (A) 4.6 k/uL (1.3-7.7); Neutrophils % (A) 56 %; Platelet Count 263 k/uL (150-450); RBC 2.97 m/uL (3.80-5.40); RDW 13.5 % (11.5-15.5); WBC 8.2 k/uL (3.8-10.6)
[2021-06-30 05:09] LABS: African American GFR (CKD) 68 (>60 ml/min/1.73 sqM); Anion Gap 5 mmol/L; Blood Urea Nitrogen 30 mg/dL (7-17); Calcium 9.3 mg/dL (8.4-10.2); Carbon Dioxide 25 mmol/L (22-30); Chloride 106 mmol/L (98-107); Glucose 99 mg/dL (74-99); Non-African American GFR(CKD) 59 (>60 ml/min/1.73 sqM); Potassium 4.2 mmol/L (3.5-5.1); Sodium 136 mmol/L (137-145)
[2021-06-30] MEDS ORDERED: lisinopriL 5 MG TAB PO SCH (09:00)
[2021-06-30] MEDS ORDERED: LACTOBACILLUS ACIDOPH & BULGAR 1 EACH PACKET PO SCH (09:00)
[2021-06-30] MEDS ORDERED: ASPIRIN 81 MG PO SCH (09:00)
[2021-06-30] MEDS ORDERED: LORATADINE 10 MG TAB PO SCH (09:00)
[2021-06-30] MEDS ORDERED: MONTELUKAST 10 MG TAB PO SCH (09:00)
[2021-06-30] MEDS ORDERED: ASPIRIN 325 MG TAB PO SCH (09:00)
[2021-06-30] MEDS ORDERED: FLUoxetine HCL 20 MG CAP PO SCH (09:00)
[2021-06-30] MEDS ORDERED: REGADENOSON 0.4 MG/5 ML SYRINGE IV PRN ×2 (09:10→09:21)
[2021-06-30] MEDS ORDERED: AMINOPHYLLINE 500 MG/20 ML VIAL IV PRN ×2 (09:10→09:21)
[2021-06-30] MEDS ORDERED: CAFFEINE CITRATE 60 MG/3 ML VIAL IV PRN ×2 (09:10→09:21)
[2021-06-30] MEDS: PANTOPRAZOLE 40 MG/10 ML VIAL IVP SCH (09:19)
[2021-06-30] MEDS: ACETAMINOPHEN TAB 325 MG TAB PO PRN ×2 (09:25→15:01)
--- NOTE | 2021-06-30 10:10 | P.CRDCN ---
History of Present Illness Consult date: 06/30/21 History of present illness: HISTORY OF PRESENT ILLNESS: This is a 66-year-old female with a past medical history significant for hypertension, chronic dizziness, TIA 5 years ago, and remote smoking many years ago. 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 We have been asked to see the patient in consultation for chest pain. Patient examined at the bedside. 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 She reports that she felt dizzy and had some blurred vision while she was wearing her glasses. She states that she continued to do her clients hair but does report that she had to go to the bathroom 3 times while working because she was not feeling well. She reports that she began having chest pain in the middle of her chest that went into her bilateral arm shoulder and back. She reports feeling short of breath at that time. She also reports feeling diaphoretic. Patient states the pain lasted for approximately 3 hours and then resolved. She went to her primary care physician's office who evaluated her and did an EKG and recommended that she come to the hospital for further evaluation. At the time of my examination this morning, the patient denies any chest pain or pressure. She denies shortness of breath. She states her vision is back to her baseline. The patient does report having a stress test approximately 12 years ago which was normal to her knowledge. She also reports a family history of coronary artery disease and states her dad of a heart attack when he was 63. EKG reveals sinus mechanism with T-wave inversions in precordial leads and flattened T waves in inferior leads. There is no previous EKGs for comparison. Chest xray negative for acute process Laboratory data: CBC 8.2. Hemoglobin 9.4. Platelet count 263. Sodium 136. Potassium 4.2. BUN 30. Creatinine 1.41 on admission. Repeat 1.0. Magnesium 2.1. Troponin negative 3. Current home cardiac medications include lisinopril 5 mg daily and aspirin 162 mg daily as needed REVIEW OF SYSTEMS: At the time of my exam: CONSTITUTIONAL: Denies fever or chills. HEENT: Denies blurred vision, vision changes, or eye pain. Denies hemoptysis CARDIOVASCULAR: Denies chest pain. Denies orthopnea. Denies PND. Denies palpitations RESPIRATORY: Denies shortness of breath. GASTROINTESTINAL: Denies abdominal pain. Denies nausea or vomiting. HEMATOLOGIC: Denies bleeding disorders. GENITOURINARY: Denies any blood in urine. SKIN: Denies pruitis. Denies rash. PHYSICAL EXAM: VITAL SIGNS: Reviewed. GENERAL: Well-developed in no acute distress. HEENT: Head is normocephalic. Pupils are equal, round. Sclerae anicteric. Mucous membranes of the mouth are moist. Neck supple. No JVD or thyromegaly LUNGS: Respirations even and unlabored. Lungs essentially clear to auscultation bilaterally. HEART: Regular rate and rhythm. S1 and S2 heard. ABDOMEN: Soft. Nondistended. Nontender. EXTREMITIES: Normal range of motion. No clubbing or cyanosis. Peripheral pulses intact. No lower extremity edema NEUROLOGIC: Awake and alert. Oriented x 3. ASSESSMENT: Chest pain Blurred vision, resolved Hypertension Acute kidney injury History of TIA, approximately 5 years ago Chronic dizziness History of remote smoking many years ago Family history of coronary artery disease, patient's father of a heart attack at 63 PLAN: An acute coronary event has been ruled out Obtain 2-D echo to assess cardiac structure and function Decrease aspirin to 81 mg daily Continue lisinopril Patient to undergo Lexiscan stress test today to assess for reversible ischemia Further recommendations pending patient's course Nurse practitioner note has been reviewed by physician. Signing provider agrees with the documented findings, assessment, and plan of care. Past Medical History Past Medical History: Asthma, CVA/TIA, GERD/Reflux, Hypertension, Memory Impairment, Musculoskeletal Disorder, Osteoarthritis (OA), Skin Disorder Additional Past Medical History / Comment(s): Osteoporosis, TIA 5-6 yrs ago-no residual effects, heart palpitations. Some memory issues at times. Seborrheic Keratosis - have moles all over my body. Vertigo. History of Any Multi-Drug Resistant Organisms: None Reported Past Surgical History: Section, Ear Surgery, Hysterectomy Additional Past Surgical History / Comment(s): Titanium in right ear. Past Anesthesia/Blood Transfusion Reactions: Motion Sickness, Postoperative Nausea & Vomiting (PONV) Additional Past Anesthesia/Blood Transfusion Reaction / Comment(s): Vertigo. Past Psychological History: Depression Smoking Status: Former smoker Past Alcohol Use History: Occasional Additional Past Alcohol Use History / Comment(s): Smoked from age 17 to 29. Past Drug Use History: None Reported - Past Family History Mother Family Medical History: No Reported History Father Family Medical History: Myocardial Infarction ([place]) Brother(s) Family Medical History: Cancer, Hypertension Additional Family Medical History / Comment(s): Lung Cancer. Medications and Allergies Home Medications Medication Instructions Recorded Confirmed Type Lisinopril [Prinivil] 5 mg PO DAILY 03/17/15 06/29/21 History L.acidoph,Paracasei, B.lactis 1 cap PO DAILY 10/09/19 06/29/21 History [Probiotic] Loratadine [Claritin] 10 mg PO DAILY 10/09/19 06/29/21 History Montelukast [Singulair] 10 mg PO DAILY 10/09/19 06/29/21 History Omeprazole [PriLOSEC] 40 mg PO BID 10/09/19 06/29/21 History ALPRAZolam [Xanax] 0.5 mg PO Q6H PRN 06/29/21 06/29/21 History Aspirin EC [Ecotrin Low Dose] 162 mg PO ONCE PRN 06/29/21 06/29/21 History FLUoxetine HCL [PROzac] 40 mg PO DAILY 06/29/21 06/29/21 History Ibuprofen [Motrin] 600 mg PO BID PRN 06/29/21 06/29/21 History Meclizine [Antivert] 25 mg PO Q12H PRN 06/29/21 06/29/21 History Allergies Allergy/AdvReac Type Severity Reaction Status Date / Time amoxicillin Allergy Unknown Verified 06/29/21 16:04 azithromycin Allergy Rash/Hives Verified 06/29/21 16:04 erythromycin base Allergy Unknown Verified 06/29/21 16:04 latex Allergy Itching/aries Verified 06/29/21 16:04 h methylprednisolone Allergy Unknown Verified 06/29/21 16:04 [From Medrol] naproxen [From Naprosyn] Allergy Itching Verified 06/29/21 16:04 ofloxacin [From Floxin] Allergy Rash/Hives Verified 06/29/21 16:04 Sulfa (Sulfonamide Allergy Rash/Hives Verified 06/29/21 16:04 Antibiotics) sulfamethoxazole Allergy Rash/Hives Verified 06/29/21 16:04 [From Bactrim] trimethoprim [From Bactrim] Allergy Rash/Hives Verified 06/29/21 16:04 "mycin" family Allergy Unknown Uncoded 06/29/21 15:10 Physical Exam Vitals: Vital Signs Temp Pulse Pulse Pulse Resp BP BP 06/30/21 08:00 65 14 06/30/21 07:00 97.8 F 66 16 131/75 06/30/21 02:00 97.9 F 59 L 14 120/75 06/29/21 18:52 98.2 F 58 L 16 138/75 06/29/21 18:23 98.5 F 65 16 131/74 06/29/21 17:00 61 20 119/77 06/29/21 15:36 62 20 120/86 06/29/21 15:06 97.9 F 58 L 16 110/62 Pulse Ox 06/30/21 08:00 06/30/21 07:00 99 06/30/21 02:00 98 06/29/21 18:52 98 06/29/21 18:23 96 06/29/21 17:00 99 06/29/21 15:36 99 06/29/21 15:06 99 Intake and Output 06/29/21 06/30/21 06/30/21 22:59 06:59 14:59 Other: Voiding Method Toilet Toilet # Voids 1 1 Weight 60.328 kg Results 06/30/21 04:22 06/30/21 04:22 Cardiac Enzymes 06/29/21 06/29/21 06/29/21 Range/Units 15:55 15:55 18:56 AST 27 (14-36) U/L Troponin I <0.012 <0.012 (0.000-0.034) ng/mL 06/29/21 Range/Units 21:41 AST (14-36) U/L Troponin I <0.012 (0.000-0.034) ng/mL Coagulation 06/29/21 Range/Units 15:55 PT 10.2 (9.0-12.0) sec APTT 22.3 (22.0-30.0) sec CBC 06/29/21 06/29/21 06/30/21 Range/Units 15:55 21:41 04:22 WBC 10.3 8.2 8.2 (3.8-10.6) k/uL RBC 3.68 L 3.00 L 2.97 L (3.80-5.40) m/uL Hgb 11.7 9.3 L D 9.4 L (11.4-16.0) gm/dL Hct 33.6 L 27.6 L 26.8 L (34.0-46.0) % Plt Count 336 230 263 (150-450) k/uL Comprehensive Metabolic Panel 06/29/21 06/30/21 Range/Units 15:55 04:22 Sodium 135 L 136 L (137-145) mmol/L Potassium 4.7 4.2 (3.5-5.1) mmol/L Chloride 101 106 (98-107) mmol/L Carbon Dioxide 23 25 (22-30) mmol/L BUN 27 H 30 H (7-17) mg/dL Creatinine 1.41 H 1.00 (0.52-1.04) mg/dL Glucose 110 H 99 (74-99) mg/dL Calcium 10.3 H 9.3 (8.4-10.2) mg/dL AST 27 (14-36) U/L ALT 11 (4-34) U/L Alkaline Phosphatase 71 (38-126) U/L Total Protein 7.4 (6.3-8.2) g/dL Albumin 4.7 (3.5-5.0) g/dL Current Medications Generic Name Dose Route Start Last Admin Trade Name Freq PRN Reason Stop Dose Admin Acetaminophen 650 mg 06/29/21 17:46 06/30/21 09:25 Acetaminophen Tab 325 Mg Tab PO 650 mg Q6HR PRN Administration Mild Pain or Fever > 100.5 Hydrocodone Bitart/Acetaminophen 1 each 06/29/21 17:46 06/29/21 19:58 Hydrocodone/Apap 5-325mg 1 Each Tab PO 1 each Q4HR PRN Administration Moderate Pain Alprazolam 0.5 mg 06/29/21 17:47 Alprazolam 0.5 Mg Tab PO Q6H PRN Anxiety Aminophylline 100 mg 06/30/21 09:21 Aminophylline 500 Mg/20 Ml Vial IV 06/30/21 13:22 ONCE PRN Patient Response Aspirin 81 mg 06/30/21 09:00 06/30/21 09:19 Aspirin 81 Mg PO 81 mg DAILY HARSHA Administration Caffeine Citrate 60 mg 06/30/21 09:21 Caffeine Citrate 60 Mg/3 Ml Vial IV 06/30/21 13:22 ONCE PRN Patient Response Fluoxetine HCl 40 mg 06/30/21 09:00 06/30/21 09:21 Fluoxetine Hcl 20 Mg Cap PO 40 mg DAILY HARSHA Administration Lactobacillus Acidoph/Bulgaricus 1 each 06/30/21 09:00 Lactobacillus Acidoph & Bulgar 1 Each Packet PO DAILY HARSHA Lisinopril 5 mg 06/30/21 09:00 06/30/21 09:21 Lisinopril 5 Mg Tab PO 5 mg DAILY HARSHA Administration Loratadine 10 mg 06/30/21 09:00 06/30/21 09:21 Loratadine 10 Mg Tab PO 10 mg DAILY HARSHA Administration Meclizine HCl 25 mg 06/29/21 17:47 Meclizine 25 Mg Tab PO Q12H PRN DIZZINESS Montelukast Sodium 10 mg 06/30/21 09:00 06/30/21 09:21 Montelukast 10 Mg Tab PO 10 mg DAILY HARSHA Administration Naloxone HCl 0.2 mg 06/29/21 17:46 Naloxone 0.4 Mg/Ml 1 Ml Vial IV Q2M PRN Opioid Reversal Nitroglycerin 0.4 mg 06/29/21 17:13 Nitroglycerin Sl Tabs 0.4 Mg Tab SUBLINGUAL Q5M PRN Chest Pain Pantoprazole Sodium 40 mg 06/29/21 18:00 06/30/21 09:19 Pantoprazole 40 Mg/10 Ml Vial IVP 40 mg DAILY HARSHA Administration Regadenoson 0.4 mg 06/30/21 09:21 Regadenoson 0.4 Mg/5 Ml Syringe IV 06/30/21 13:22 ONCE PRN Per Protocol Intake and Output 06/29/21 06/30/21 06/30/21 22:59 06:59 14:59 Other: Voiding Method Toilet Toilet # Voids 1 1 Weight 60.328 kg 06/30/21 04:22 06/30/21 04:22
[2021-06-30 10:30] LABS: Chol/HDL Ratio 3.88; Cholesterol 167 mg/dL (0-200); LDL Cholesterol,Calculated 103.8 mg/dL (0.0-131.0)
--- NOTE | 2021-06-30 13:08 | NM ---
EXAMINATION TYPE: NM stress lexiscan cardiolite DATE OF EXAM: 06/30/2021 COMPARISON: NONE HISTORY: Chest pain TECHNIQUE: After the intravenous administration of 10.4 mCi Tc 99m Sestamibi - Cardiolite resting SP ECT images acquired 45 minutes post injection. The patient received 0.4mg Lexiscan, 25.5 mCi Tc 99m Sestamibi - Stress images obtained [address] injection FINDINGS: Review of stress and rest SPECT images demonstrates no distinct perfusion abnormality. Gated analysi s shows normal wall motion with an estimated left ventricular ejection fraction of 61 %. IMPRESSION: No scintigraphic evidence for reversible ischemia.
--- NOTE | 2021-06-30 14:00 | ECHOF ---
Referral Reason:Lv function, chest pain MEASUREMENTS -------- HEIGHT: 160.0 cm WEIGHT: 60.3 kg BP: 131/75 RVIDd: 3.1 cm (< 3.3) IVSd: 1.2 cm (0.6 - 1.1) LVIDd: 4.7 cm (3.9 - 5.3) LVPWd: 1.2 cm (0.6 - 1.1) IVSs: 1.8 cm LVIDs: 3.0 cm LVPWs: 1.9 cm LA Diam: 3.7 cm (2.7 - 3.8) LAESV Index (A-L): 27.98 ml/m Ao Diam: 3.2 cm (2.0 - 3.7) AV Cusp: 2.2 cm (1.5 - 2.6) MV EXCURSION: 21.518 mm (> 18.000) MV EF SLOPE: 128 mm/s (70 - 150) EPSS: 0.3 cm MV E Miguel: 0.55 m/s MV DecT: 341 ms MV A Miguel: 0.71 m/s MV E/A Ratio: 0.77 RAP: 5.00 mmHg RVSP: 27.98 mmHg FINDINGS -------- Sinus rhythm. This was a technically adequate study. The left ventricular size is normal. There is borderline concentric left ventricular hypertrophy. Overall left ventricular systolic function is normal with, an EF between 60 - 65 %. The right ventricle is normal in size. Normal LA size by volume 22+/-6 ml/m2. The right atrium is normal in size. Aneurysmal Interatrial septum. The aortic valve is trileaflet, and appears structurally normal. No aortic stenosis or regurgitation. There is trace mitral regurgitation. Mild tricuspid regurgitation present. Right ventricular systolic pressure is normal at < 35 mmHg. There is no pulmonic regurgitation present. The aortic root size is normal. Normal inferior vena cava with normal inspiratory collapse consistent with estimated right atrial pre ssure of 5 mmHg. There is no pericardial effusion. CONCLUSIONS -------- 1. This was a technically adequate study. 2. The left ventricular size is normal. 3. There is borderline concentric left ventricular hypertrophy. 4. Overall left ventricular systolic function is normal with, an EF between 60 - 65 %. 5. Aneurysmal Interatrial septum. 6. The aortic valve is trileaflet, and appears structurally normal. No aortic stenosis or regurgitati on. 7. There is trace mitral regurgitation. 8. Mild tricuspid regurgitation present. 9. There is no pericardial effusion. CIRCUIT BOARD INSPECTOR: Nereyda Blackwell RDCS
[2021-06-30 14:51] VITALS: BP 117/69; RESP 16; TEMP 98.8
[2021-06-30 15:15] VITALS: PULSE 65
[2021-06-30] MEDS ORDERED: dexAMETHasone 4 MG TAB PO STA (15:15)
--- NOTE | 2021-06-30 17:29 | P.DS ---
Providers Date of admission: 06/29/21 17:14 Expected date of discharge: 06/30/21 Attending physician: Joann Harrell DO Primary care physician: Mich Pereira Hospital Course: Discharge Diagnosis: Noncardiac chest pain Cervical radiculopathy Anemia GERD HPI Hypertension Hospital Course: Patient is a 66-year-old female with a history of hypertension, prior TIA, palp itations, and multiple other comorbid conditions who initially presented to Dr. Pereira's office with complaints of chest pain. She was evaluated there and instructed to go to the ER. On arrival here she underwent an EKG which showed nonspecific ST-T wave changes. Initial vital signs within normal limits and troponin was negative. She was given an aspirin and was placed in observation for chest pain. The remainder of her troponins were negative. She underwent a Lexiscan stress test which showed no signs of reversible ischemia. She underwent an echocardiogram which showed an ejection fraction of 60-65%. Initial hemoglobin was 11 and 6 hours later did drop to 9.3 however subsequent hemoglobin was able at 9.4. Patient had reported one episode of melanotic stools at home. She did not have recurrence during her hospital stay. She was determined stable for discharge home. She has not been taking her PPI appropriately and she was instructed to resume her omeprazole 40 mg twice daily and her prescription was refilled Follow-up: Patient did have positive Spurling's test during hospital stay consistent with cervical radiculopathy and increased pain in her shoulders. Patient should follow with Dr. Chopra of orthopedic spine for further evaluation. She was started on Decadron 4 mg twice daily with history of prednisone intolerance. We did do a test dose in the hospital which she tolerated well. She was given explicit instructions to ensure that she takes her omeprazole 40 mg twice daily while on the steroid. We also discussed that if her melena recurs she should be evaluated by gastroenterology. She should stay off ibuprofen while on oral steroid. Follow-up: Dr. Priest office will call with appointment, Dexamethason 4 mg BID X 5 days. Consider outpatient EGD/colonoscpy if melena recurs. Dr. Link in 3-5 days. Patient seen and examined at bedside. Chest pain is resolved no acid reflux pain, now with bilateral arm pain and neck pain. Vital signs reviewed and stable. General: non toxic, no distress, appears at stated age Derm: warm, dry Head: atraumatic, normocephalic, symmetric Eyes: EOMI, no lid lag, anicteric sclera Mouth: no lip lesion, mucus membranes moist Cardiovascular: S1S2 reg, no murmur, positive posterior tibial pulse bilateral, Lungs: CTA bilateral, no rhonchi, no rales , no accessory muscle use Abdominal: soft, nontender to palpation, no guarding, no appreciable organomegaly Ext: no gross muscle atrophy, no edema, no contractures Neuro: CN II-XI grossly intact, no focal neuro deficits, + Spurling test Psych: Alert, oriented, appropriate affect A total of 35 minutes of time were spent preparing this complex discharge summary . Patient Condition at Discharge: Fair Plan - Discharge Summary New Discharge Prescriptions: New Omeprazole 40 mg PO AC-BID #60 capsule. dexAMETHasone [Dexamethasone] 4 mg PO AC-BID #9 tablet Continue Lisinopril [Prinivil] 5 mg PO DAILY Montelukast [Singulair] 10 mg PO DAILY L.acidoph,Paracasei, B.lactis [Probiotic] 1 cap PO DAILY Loratadine [Claritin] 10 mg PO DAILY Meclizine [Antivert] 25 mg PO Q12H PRN PRN Reason: DIZZINESS Aspirin EC [Ecotrin Low Dose] 162 mg PO ONCE PRN PRN Reason: Chest Pain FLUoxetine HCL [PROzac] 40 mg PO DAILY ALPRAZolam [Xanax] 0.5 mg PO Q6H PRN PRN Reason: Anxiety Discontinued Omeprazole [PriLOSEC] 40 mg PO BID Ibuprofen [Motrin] 600 mg PO BID PRN PRN Reason: Pain Discharge Medication List Lisinopril [Prinivil] 5 mg PO DAILY 03/17/15 [History] L.acidoph,Paracasei, B.lactis [Probiotic] 1 cap PO DAILY 10/09/19 [History] Loratadine [Claritin] 10 mg PO DAILY 10/09/19 [History] Montelukast [Singulair] 10 mg PO DAILY 10/09/19 [History] ALPRAZolam [Xanax] 0.5 mg PO Q6H PRN 06/29/21 [History] Aspirin EC [Ecotrin Low Dose] 162 mg PO ONCE PRN 06/29/21 [History] FLUoxetine HCL [PROzac] 40 mg PO DAILY 06/29/21 [History] Meclizine [Antivert] 25 mg PO Q12H PRN 06/29/21 [History] Omeprazole 40 mg PO AC-BID #60 capsule. 06/30/21 [Rx] dexAMETHasone [Dexamethasone] 4 mg PO AC-BID #9 tablet 06/30/21 [Rx] Follow up Appointment(s)/Referral(s): Jean Marie Pereira MD [Primary Care Provider] - 1-2 days Ronald Chopra DO [Doctor of Osteopathic Medicine] - 1 Week Patient Instructions/Handouts: Chest Pain (GEN), Cervical Radiculopathy (GEN), Cardiac Stress Test (GEN) Activity/Diet/Wound Care/Special Instructions: Activity: As tolerated Diet: Heart healthy Special Instructions: Follow-up with Dr. Chopra for cervical radiculopathy likely related to arthritis Make sure to take your omeprazole twice daily Considered outpatient EGD if black stools recur. stay off ibuprofen while on oral steroid. Discharge Disposition: HOME SELF-CARE
--- NOTE | 2021-06-30 17:41 | P.STRESS ---
- Stress Test Note Stress Test Results/Findings: Exam Performed: NM stress lexiscan cardiolite Exam Date: 06/30/21 Reason for Exam: CHEST PAIN Height: 5 ft 3 in Weight: 60.33 kg Protocol: LEXISCAN Stage: NA Duration of Exercise: NA Resting Heart Rate: 63 Resting Blood Pressure: 103/57 Maximum Achieved Heart Rate: 89 Maximum Achieved Blood Pressure: 113/57 85% PMHR: 130 100% PMHR: 153 METS: NA Technologist Comment: Stress Test Results/Findings: At baseline EKG showed normal sinus rhythm, normal axis, no significant ST or T wave abnormalities. Patient recieved IV infusion of Lexiscan 0.4mg and at peak infusion EKG showed no significant change from baseline. Conclusions: 1. Normal EKG response to Lexiscan infusion 2. Nuclear imaging to be reported separately
== END 2021-06-30 17:49 | disposition home or self-care (01) ==
LOC: EC 15:04 → 6NMEDSUR 17:14
PROVIDERS: ADMIT Internal Medicine; ATTEND Internal Medicine
DX: R07.2 Precordial pain (principal); M54.12 Radiculopathy, cervical region; D64.9 Anemia, unspecified; K21.9 Gastro-esophageal reflux disease without esophagitis; I10 Essential (primary) hypertension; R00.2 Palpitations; H53.8 Other visual disturbances; R11.0 Nausea; R61 Generalized hyperhidrosis; K92.1 Melena; Z20.822 Contact with and (suspected) exposure to COVID-19; M81.0 Age-related osteoporosis without current pathological fracture; M19.90 Unspecified osteoarthritis, unspecified site; L82.1 Other seborrheic keratosis; N17.9 Acute kidney failure, unspecified; J45.909 Unspecified asthma, uncomplicated; F32.9 Major depressive disorder, single episode, unspecified; Z79.899 Other long term (current) drug therapy; Z88.0 Allergy status to penicillin; Z88.2 Allergy status to sulfonamides; Z88.1 Allergy status to other antibiotic agents; Z91.040 Latex allergy status; Z88.8 Allergy status to other drugs, medicaments and biological substances; Z88.6 Allergy status to analgesic agent; Z86.73 Personal history of transient ischemic attack (TIA), and cerebral infarction without residual deficits; Z87.891 Personal history of nicotine dependence; Z98.891 History of uterine scar from previous surgery; Z90.710 Acquired absence of both cervix and uterus; Z80.1 Family history of malignant neoplasm of trachea, bronchus and lung; Z82.49 Family history of ischemic heart disease and other diseases of the circulatory system
CPT/HCPCS: 99285; 96376; 96374; 93005 ×2; 36415; 93017; 93306; 80061; 80053; 80048; 83735; 84484; 85025 ×2; 85027; 85610; 85730; 87635; 71046; 78452; G0378 ×2; A9500; J8540; J2785; C9113 ×2

== ENCOUNTER → 2021-08-23 | Outpatient (CLI) | payer MEDICARE ==
--- NOTE | 2021-08-26 11:37 | MR ---
EXAMINATION TYPE: MR cspine/tspine wo con DATE OF EXAM: 08/23/2021 COMPARISON: NONE HISTORY: 66-year-old female Neck pain, thoracic spine pain, shoulder pain, headache. M54.2 M54.6 TECHNIQUE: Multiplanar, multisequence images of the cervical and thoracic spine were obtained without IV contrast. FINDINGS: CERVICAL SPINE: No craniocervical junction and amount, predental space widening, or prevertebral soft tissue swelling . Mild to moderate multilevel degenerative disc disease with variable disc desiccation and disc space n arrowing and discussed by complex formation. Some scattered ligamentum flavum thickening in scattered facet and uncovertebral joint arthropathy is also noted. There is a 1.0 cm T2 hyperintense round lesion within the right vallecular space, suspected mucosal r etention cyst. This can be correlated with direct inspection. Degenerative grade 1 retrolisthesis C3-C4. Grade 1 anterolisthesis at C7-T1. At C2-C3, mild facet arthropathy without significant canal or foraminal stenosis. At C3-C4, disc osteophyte complex along with mild ligamentum flavum thickening as well as facet and u ncovertebral joint arthropathy. Changes result in mild narrowing of the spinal canal with abutment of the ventral cord and moderate right and moderate to severe left neuroforaminal stenosis. At C4-C5, disc osteophytic complex with mild facet arthropathy. Changes result in mild bilateral neur al foraminal stenosis. There is impression on the ventral thecal sac without significant spinal canal stenosis. At C5-C6, disc osteophyte complex with facet arthropathy. Changes result in mild to moderate left alfredo roforaminal stenosis. Impression onto the ventral thecal sac without significant spinal canal stenosi s. At C6-C7, right based disc osteophyte complex with uncovertebral joint and facet degenerative change. Moderate left neural foraminal stenosis. No spinal canal stenosis. At C7-T1, facet arthropathy with grade 1 anterolisthesis. No spinal canal or foraminal stenosis. Normal course and signal intensity of the cervical spinal cord. No suspicious bone marrow replacement. 6 mm T2 mildly hyperintense nodule left lobe of the thyroid gland partially visualized. THORACIC SPINE: Vertebral body heights are preserved. Grade 1 anterolisthesis C7-T1 and T2-T3. Mild degenerative disc disease with disc desiccation. A couple small disc protrusions are present at various levels which is at T9-T10. This is a right paracentral protrusion. Additional mild posterior disc bulge at T12-L1. No large focal disc herniation or significant spinal canal stenosis. Scattered facet arthropathy within the upper thoracic spine. Moderate right neural foraminal stenosis at T2-T3, T3-T4, and mild at T4-T5. Moderate on the left at T2-T3. Normal course, caliber, and signal intensity of the cervical and thoracic spinal cord. Conus medullar is is normal. Partially visualized large left renal cyst measuring up to 6.1 cm and additional scattered hepatic cy sts. Levoconvex scoliotic curvature upper third thoracic spine. COMBINED IMPRESSION: CERVICAL SPINE: 1. Moderate multilevel degenerative disc disease with scattered facet and uncovertebral joint arthrop athy. Degenerative grade 1 retrolisthesis C3-C4 and grade 1 anterolisthesis C7-T1. 2. Disc osteophyte complex and ligamentum flavum thickening at C3-C4 along with the spondylolisthesis contribute to a mild spinal canal stenosis. There is abutment of the ventral cord without cord marlena ening or carleen canal confirmation. 3. Variable mild and moderate neural foraminal stenoses as outlined above. There may be moderate to s evere neuroforaminal narrowing on the left at C3-C4. THORACIC SPINE: 4. Degenerative grade 1 anterolisthesis C7-T1 and T2-T3. 5. Levoconvex curvature upper third thoracic spine. 6. Mild multilevel degenerative disc disease. Small right paracentral disc protrusion at T9-T10. 7. No large focal disc herniation or significant spinal canal stenosis. Variable mild to moderate alfredo ral foraminal narrowing in the upper thoracic spine secondary to facet arthropathy.
== END | disposition home or self-care (01) ==
LOC: RADMRIMAIN 14:09
PROVIDERS: ATTEND Orthopaedic Surgery
DX: M48.02 Spinal stenosis, cervical region (principal); M48.04 Spinal stenosis, thoracic region; M50.323 Other cervical disc degeneration at C6-C7 level; M51.34 Other intervertebral disc degeneration, thoracic region; M46.92 Unspecified inflammatory spondylopathy, cervical region; M46.94 Unspecified inflammatory spondylopathy, thoracic region
CPT/HCPCS: 72141; 72146

== ENCOUNTER → 2021-08-25 | Outpatient (CLI) | payer MEDICARE ==
--- NOTE | 2021-08-26 09:22 | CT ---
EXAMINATION TYPE: CT CervThoracic spine wo con DATE OF EXAM: 08/25/2021 COMPARISON: MRI 08/23/2021, MRI brain 08/16/2015. HISTORY: 66-year-old female NECK PAIN, PT IS A HAIRDRESSER. M54.6 Thoracic spine pain, M54.2 Cervica lgia TECHNIQUE: Contiguous axial scanning of the cervical and thoracic spine without IV contrast. Coronal and sagittal reconstructions performed. CT DLP: 1111.9 mGycm Automated exposure control for dose reduction was used. FINDINGS: CERVICAL SPINE: There is bony ankylosis of C1 with the occipital condyles. No predental space widening or prevertebral soft tissue swelling. Moderate disc/endplate degenerative change throughout. Degenerative grade 1 retrolisthesis C3-C4. Degenerative grade 1 anterolisthesis C7-T1, T2-T3, T3-T4. Facet arthropathy greater towards the left along with multilevel uncovertebral joint arthropathy. Disc osteophyte complex, grade 1 retrolisthesis, and some ligamentum flavum thickening contribute to mild spinal canal stenosis at C3-C4. Nodules along the left posterior base of the head centered in the subcutaneous adipose layer measurin g 1.3 and 0.9 cm. Likely sebaceous cysts. Prominent CSF space along the right perimesencephalic cistern measuring approximately 2.9 x 1.4 cm. P ossible underlying arachnoid cyst, unchanged from 2015. At C3-C4, moderate to severe right and moderate left neural foraminal stenosis. At C5-C6, moderate left and mild right neuroforaminal stenosis. At C6/C7, [id number] left neuroforaminal stenosis. 5 mm hypodense nodule left lobe of the thyroid gland. THORACIC SPINE: Multiple left renal cysts partially visualized measuring up to 6.8 cm. Multiple additional hepatic cy sts. There is a levoconvex scoliotic curvature along the upper third thoracic spine. Mild degenerative disc disease upper third thoracic spine. Degenerative grade 1 anterolisthesis T2-T3, T3-T4, and T4-T5. Vertebral body heights are preserved. Scattered facet arthropathy upper third thoracic spine. No evident canal compromise by CT. A mild to moderate neural foraminal narrowing suggested on the right at T2-T3 and T3-T4 and on the le ft at T2-T3. IMPRESSION: CERVICAL SPINE: 1. Moderate multilevel disc/endplate degenerative change. Facet and uncovertebral joint arthropathy t hroughout, greater towards the left. Degenerative grade 1 retrolisthesis C3-C4. 2. Changes contribute to mild spinal canal stenosis at C3-C4. 3. Variable neuroforaminal stenoses as outlined above, moderate to severe on the right at C3-C4. 4. Note bony ankylosis across C1 and the occipital articulation THORACIC SPINE: 5. Levoconvex scoliotic curvature upper third thoracic spine with associated facet degenerative lee e and mild degenerative disc disease. 6. Degenerative grade 1 anterolisthesis T2 through T5 levels. 7. Variable mild to moderate neural foraminal narrowing T2-T3 and T3-T4.
== END | disposition home or self-care (01) ==
LOC: RADCTMAIN 17:08
PROVIDERS: ATTEND Orthopaedic Surgery
DX: M50.30 Other cervical disc degeneration, unspecified cervical region (principal); M48.02 Spinal stenosis, cervical region; M54.6 Pain in thoracic spine
CPT/HCPCS: 72125; 72128

== ENCOUNTER 2021-10-21 11:56 | Day surgery (SDC) | payer MEDICARE ==
[2021-10-20 13:43] VITALS: BMI 21.6
[2021-10-21 12:30] VITALS: RESP 16; TEMP 97.8
[2021-10-21] MEDS ORDERED: LIDOCAINE 1% (10MG/ML) FOR IV START INTRADERMA ONE (12:35)
--- NOTE | 2021-10-21 13:51 | P.PCN ---
Date of Procedure: 10/21/21 Procedure(s) Performed: BRIEF HISTORY: Patient is a 66-year-old, pleasant, white female scheduled for an upper endoscopy as a part of evaluation of iron deficiency anemia. She was having intermittent black tarry stools of 3 weeks ago and hemoglobin was 9.9 g/dL. Her last coloscopy was in 2019 that was unremarkable. Because of the anemia and black tarry stools she is scheduled for an upper endoscopy today.. PROCEDURE PERFORMED: Esophagogastroduodenoscopy with cautery. PREOPERATIVE DIAGNOSIS: Intermittent black tarry stools and anemia. IV sedation per anesthesia. PROCEDURE: After informed consent was obtained, the patient was brought into the endoscopy unit. IV sedation was administered by Anesthesia under continuous monitoring. Initially the Olympus GIF-140 video endoscope was inserted into the mouth. Esophagus intubated without any difficulty. It was gradually advanced into the stomach and duodenum and carefully examined. The bulb and the second part of the duodenum appeared normal. Biopsies were done from the duodenum to rule out celiac disease. The scope at this time was withdrawn to the stomach, adequately insufflated with air, and upon careful examination, mucosa of the antrum, appeared normal. The body the stomach there was 3 small nonbleeding arteriovenous this malformation measuring about 3-4 mm in size which were all cauterized using a gold probe. Rest of the body, cardia and the fundus appeared normal. The scope was then withdrawn into the esophagus. The GE junction was located at 39 cm from the incisors. The esophagus appeared normal. There were no erosions or ulcerations seen and the patient tolerated the procedure well. IMPRESSION: 1. 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 2. Small gastric polyps. RECOMMENDATIONS: The findings of this examination were discussed with the patient as well as a family. She was advised to follow with the biopsy results. Start iron supplements daily. Monitor CBC closely. If she continues to have persistent iron deficiency anemia will consider a small bowel capsule endoscopy. She'll be seen in office in 4 weeks.
[2021-10-21 14:35] VITALS: BP 156/84; PULSE 66
== END 2021-10-21 14:37 | disposition home or self-care (01) ==
LOC: ORWHC2ENDO 11:56
PROVIDERS: ATTEND Internal Medicine Gastroenterology
DX: D50.9 Iron deficiency anemia, unspecified (principal); Q27.33 Arteriovenous malformation of digestive system vessel; K31.7 Polyp of stomach and duodenum; J45.909 Unspecified asthma, uncomplicated; Z86.73 Personal history of transient ischemic attack (TIA), and cerebral infarction without residual deficits; M54.12 Radiculopathy, cervical region; I10 Essential (primary) hypertension; Z79.899 Other long term (current) drug therapy
CPT/HCPCS: 43239; 43255; 88305

== ENCOUNTER → 2022-08-04 | Outpatient (CLI) | payer MEDICARE ==
[2022-08-04 22:59] LABS: Basophils # (A) 0.07 X 10*3/uL (0.00-0.10); Basophils % (A) 0.9 %; Eosinophils # (A) 0.11 X 10*3/uL (0.04-0.35); Eosinophils % (A) 1.5 %; HCT 39.3 % (37.2-46.3); HGB 12.9 g/dL (12.0-15.0); Immature Grans, Automated 0.1 %; Lymphocytes # (A) 2.86 X 10*3/uL (0.90-5.00); Lymphocytes % (A) 38.5 %; MCH 30.1 pg (27.0-32.0); MCHC 32.8 g/dL (32.0-37.0); MCV 91.8 fL (80.0-97.0); Mean Platelet Volume 11.3 fL (9.5-12.2); Monocytes # (A) 0.53 X 10*3/uL (0.20-1.00); Monocytes % (A) 7.1 %; NRBC Per 100 WBC 0 /100 WBCS (0.0-0.0); Neutrophils # (A) 3.85 X 10*3/uL (1.80-7.70); Neutrophils % (A) 51.9 %; Platelet Count 297 X 10*3/uL (140-440); RBC 4.28 X 10*6/uL (4.10-5.20); RDW 13.3 % (11.5-14.5); WBC 7.43 X 10*3/uL (4.50-10.00)
[2022-08-04 23:55] LABS: African American GFR (CKD) 63.2 (60.0-200.0); Albumin 4.5 g/dL (3.8-4.9); Albumin/Globulin Ratio 2.22 (1.60-3.17); Anion Gap 12.6 mmol/L (10.00-18.00); BUN/Creat Ratio 14.48 Ratio (12.00-20.00); Blood Urea Nitrogen 15.2 mg/dL (9.0-27.0); Calcium 9.7 mg/dL (8.7-10.3); Non-African American GFR(CKD) 54.5 (60.0-200.0); Potassium 4.2 mmol/L (3.5-5.5); Total Bilirubin 0.3 mg/dL (0.30-1.20); Total Protein 6.5 g/dL (6.2-8.2)
== END | disposition home or self-care (01) ==
LOC: LABWHC1 16:03
PROVIDERS: ATTEND Psychiatry & Neurology Neurology
DX: G31.84 Mild cognitive impairment of uncertain or unknown etiology (principal)
CPT/HCPCS: 36415; 80053; 82607; 84443; 85025; 86780

== ENCOUNTER → 2022-08-08 | Outpatient (CLI) | payer MEDICARE ==
[~2022-08-08] MED LIST changes: -LACTATED RINGERS 1,000 ML IV SCH; +SODIUM CHLORIDE 0.9% 500 ML 500 ML in EMPTY BAG 1 BAG IV PRN; +ZOLEDRONIC ACID 5 MG in SODIUM CHLORIDE 0.9% 100 ML IV NR
[2022-08-08 11:23] VITALS: BP 122/78; PULSE 79; RESP 16; TEMP 98.3
== END | disposition home or self-care (01) ==
LOC: PROCWHC3 10:57
PROVIDERS: ATTEND Family Medicine
DX: M81.0 Age-related osteoporosis without current pathological fracture (principal)
CPT/HCPCS: 96365; J3489

== ENCOUNTER → 2022-12-13 | Outpatient (CLI) | payer MEDICARE ==
--- NOTE | 2022-12-13 20:23 | MR ---
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 Specialized thin s equences were obtained through the internal auditory canals. Pre-and post gadolinium sequences were obtained. MR contrast: IV Contrast: 5.5 cc Gadavist FINDINGS: Cerebral atrophy changes with proportional dilation of the ventricular system. Mild atrophy changes o f the medial temporal lobes. Scattered foci of high T2 signal intensity are seen within the periventr icular white matter. Midline structures show no abnormality. Diffusion-weighted imaging shows no evid ence of restricted diffusion. The susceptibility weighted images demonstrate blooming artifact right frontal lobe consistent with microhemorrhage. The bone marrow signal is within normal limits. Paranasal sinuses and mastoid air cells: Mild scattered paranasal sinus disease. Visualized orbits: Orbital contents are intact. After administration of gadolinium, no abnormal enhancement is seen. Left posterior scalp high T2 low T1 signal bilobed 17 x 7 mm cyst. The internal auditory canal sequences demonstrate no significant irregularity. The 7th cranial nerve s, 8 cranial nerves, and cerebellar pontine angles appear unremarkable. After the administration sai olinium, no abnormal enhancement is seen within the internal auditory canals. IMPRESSION: 1. No evidence of intracranial mass nor acute/subacute CVA. 2. No evidence of internal auditory canal abnormality. 3. Mild bilateral mesial temporal lobe atrophy, correlate for Alzheimer's disease. Findings have prog ressed from 2014. 4. Nonspecific white matter changes likely related to chronic small vessel ischemic disease.
== END | disposition home or self-care (01) ==
LOC: RADMRIMAIN 17:43
PROVIDERS: ATTEND Nurse Practitioner Adult Health
DX: G31.9 Degenerative disease of nervous system, unspecified (principal); G93.89 Other specified disorders of brain
CPT/HCPCS: 70553; A9585

== ENCOUNTER → 2023-07-16 | Outpatient (CLI) | payer MEDICARE ==
--- NOTE | 2023-07-19 08:52 | MM ---
Reason for Exam: Screening (asymptomatic). Last screening mammogram was performed 12 month(s) ago. Patient History: Menarche at age 15. First Full-Term at age 24. Hysterectomy at age 29. Postmenopausal. Risk Values: Eveline 5 year model risk: 1.7%. NCI Lifetime model risk: 5.4%. Prior Study Comparison: 08/26/2018 Bilateral Screening Mammogram, [facility]. 10/22/2019 Bilateral Screening Mammogram, [facility]. 07/10/2022 Bilateral MG 3D screening mammo w/cad, [facility]. Tissue Density: The breast tissue is heterogeneously dense. This may lower the sensitivity of mammography. Findings: Analyzed By CAD. There is no suspicious group of microcalcifications or new suspicious mass in either breast. Overall Assessment: Negative, BI-RAD 1 Management: Screening Mammogram of both breasts in [address] [facility] will attempt to contact patient to return for supplemental views and ultrasound if indicated. Patient should continue monthly self-breast exams. A clinical breast exam by your physician is recommended on an annual basis. This exam should not preclude additional follow-up of suspicious palpable abnormalities. Note on Eveline scores and lifetime risk: 1. A Eveline score greater than 3% is considered moderate risk. If this is the case, consider specialist referral to assess eligibility for a risk reducing agent. 2. If overall lifetime risk for the development of breast cancer is 20% or higher, the patient may qualify for future screening with alternating mammogram and breast MRI. Electronically signed and approved by: Zhao Monroe DO
== END | disposition home or self-care (01) ==
LOC: RADMAMWWP 14:47
PROVIDERS: ATTEND Family Medicine
DX: Z12.31 Encounter for screening mammogram for malignant neoplasm of breast (principal); Z78.0 Asymptomatic menopausal state
CPT/HCPCS: 77063; 77067

== ENCOUNTER → 2023-08-09 | Outpatient (CLI) | payer MEDICARE ==
[2023-08-09 13:45] VITALS: BP 128/82; PULSE 67; RESP 16; TEMP 97.8
== END ==
LOC: PROCWHC3 12:55
PROVIDERS: ATTEND Family Medicine
DX: M81.0 Age-related osteoporosis without current pathological fracture (principal)
CPT/HCPCS: 96365; J3489

== ENCOUNTER → 2024-03-03 | Outpatient (CLI) | payer MEDICARE ==
--- NOTE | 2024-03-03 18:41 | MR ---
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 Specialized thin s equences were obtained through the internal auditory canals. Pre-and post gadolinium sequences were obtained. MR contrast: IV Contrast: 5.5 cc Gadavist FINDINGS: The will-white junctions, ventricular system, and cisterns appear unremarkable. Scattered foci of h igh T2 signal intensity are seen within the periventricular white matter. Midline structures show no abnormality. Diffusion-weighted imaging shows no evidence of restricted diffusion. The susceptibility weighted images do not reveal any evidence for micro-hemorrhage. Left posterior scalp sebaceous cyst s are unchanged from prior. The bone marrow signal is within normal limits. Paranasal sinuses and mastoid air cells: Mild scattered paranasal sinus disease. Visualized orbits: Orbital contents are intact. After administration of gadolinium, no abnormal enhancement is seen. The internal auditory canal sequences demonstrate no significant irregularity. The 7th cranial nerve s, 8 cranial nerves, and cerebellar pontine angles appear unremarkable. After the administration sai olinium, no abnormal enhancement is seen within the internal auditory canals. Vascular loop: None. IMPRESSION: 1. No evidence of intracranial mass nor acute/subacute CVA. 2. No evidence of internal auditory canal abnormality. 3. Nonspecific white matter changes, likely secondary to small vessel ischemic disease.
== END | disposition home or self-care (01) ==
LOC: RADMRIMAIN 15:52
PROVIDERS: ATTEND Psychiatry & Neurology Neurology
DX: F01.50 Vascular dementia, unspecified severity, without behavioral disturbance, psychotic disturbance, mood disturbance, and anxiety (principal); F02.80 Dementia in other diseases classified elsewhere, unspecified severity, without behavioral disturbance, psychotic disturbance, mood disturbance, and anxiety; G30.9 Alzheimer's disease, unspecified; H81.10 Benign paroxysmal vertigo, unspecified ear; I67.82 Cerebral ischemia
CPT/HCPCS: 70553; A9585

== ENCOUNTER → 2024-07-17 | Outpatient (CLI) | payer MEDICARE ==
--- NOTE | 2024-07-23 08:21 | MM ---
Reason for Exam: Screening (asymptomatic). Last screening mammogram was performed 12 month(s) ago. Patient History: Menarche at age 15. First Full-Term at age 24. Hysterectomy at age 29. Postmenopausal. Risk Values: Eveline 5 year model risk: 1.7%. NCI Lifetime model risk: 5.1%. Prior Study Comparison: 10/22/2019 Bilateral Screening Mammogram, [facility]. 07/10/2022 Bilateral MG 3D screening mammo w/cad, [facility]. 07/16/2023 Bilateral MG 3D screening mammo w/cad, [facility]. Tissue Density: There are scattered areas of fibroglandular density. Findings: Analyzed By CAD. Right breast: There is no suspicious group of microcalcifications or new suspicious mass. Left breast: There is no suspicious group of microcalcifications or new suspicious mass. Overall Assessment: Negative, BI-RAD 1 Management: Screening Mammogram of both breasts in [address] [facility] will attempt to contact patient to return for supplemental views and ultrasound if indicated. Patient should continue monthly self-breast exams. A clinical breast exam by your physician is recommended on an annual basis. This exam should not preclude additional follow-up of suspicious palpable abnormalities. Note on Eveline scores and lifetime risk: 1. A Eveline score greater than 3% is considered moderate risk. If this is the case, consider specialist referral to assess eligibility for a risk reducing agent. 2. If overall lifetime risk for the development of breast cancer is 20% or higher, the patient may qualify for future screening with alternating mammogram and breast MRI. Electronically signed and approved by: Zhao Monroe DO
== END | disposition home or self-care (01) ==
LOC: RADMAMWWP 10:02
PROVIDERS: ATTEND Family Medicine
DX: Z12.31 Encounter for screening mammogram for malignant neoplasm of breast
CPT/HCPCS: 77063; 77067

== ENCOUNTER → 2024-11-05 | Outpatient (CLI) | payer MEDICARE ==
[2024-11-05 14:50] LABS: HCT 43.3 % (37.2-46.3); HGB 13.8 g/dL (12.0-15.0); MCH 29.6 pg (27.0-32.0); MCHC 31.9 g/dL (32.0-37.0); MCV 92.7 FL (80.0-97.0); Mean Platelet Volume 11.9 FL (9.5-12.2); NRBC Per 100 WBC 0 X 10*3/uL (0.00-0.01); Platelet Count 310 X 10*3/uL (140-440); RBC 4.67 X 10*6/uL (4.10-5.20); RDW 13.6 % (11.5-14.5); WBC 6.25 X 10*3/uL (4.50-10.00)
[2024-11-05 16:02] LABS: ALT 8 U/L (8-44); AST 17 U/L (13-35); Albumin 4.4 g/dL (3.8-4.9); Albumin/Globulin Ratio 1.91 Ratio (1.60-3.17); Alkaline Phosphatase 66 U/L (41-126); BUN/Creat Ratio 13.45 Ratio (12.00-20.00); Blood Urea Nitrogen 14.8 mg/dL (9.0-27.0); Calcium 9.7 mg/dL (8.7-10.3); Carbon Dioxide 27.9 mmol/L (21.6-31.8); Chloride 103 mmol/L (96-109); Chol/HDL Ratio 3.49 Ratio; Globulin 2.3 g/dL (1.6-3.3); Glucose 93 mg/dL (70-110); LDL Cholesterol,Calculated 153.4 mg/dL (0.0-131.0); Potassium 4.5 mmol/L (3.5-5.5); Sodium 141 mmol/L (135-145); Total Bilirubin 0.4 mg/dL (0.3-1.2); Total Protein 6.7 g/dL (6.2-8.2)
== END | disposition home or self-care (01) ==
LOC: LABWHC1 08:57
PROVIDERS: ATTEND Family Medicine
DX: Z00.01 Encounter for general adult medical examination with abnormal findings (principal)
CPT/HCPCS: 36415; 80053; 80061; 85027

== ENCOUNTER → 2024-12-10 | Outpatient (CLI) | payer MEDICARE ==
[~2024-12-10] MED LIST changes: +SODIUM CHLORIDE 0.9% 250 ML in EMPTY BAG 1 BAG IV PRN; -SODIUM CHLORIDE 0.9% 500 ML 500 ML in EMPTY BAG 1 BAG IV PRN; -ZOLEDRONIC ACID 5 MG in SODIUM CHLORIDE 0.9% 100 ML IV NR
[2024-12-10] MEDS: ZOLEDRONIC ACID 5 MG in SODIUM CHLORIDE 0.9% 100 ML IV NR (13:43)
[2024-12-10] MEDS: SODIUM CHLORIDE 0.9% 500 ML 500 ML in EMPTY BAG 1 BAG IV PRN (13:43)
[2024-12-10 13:55] VITALS: BP 145/74; PULSE 58; RESP 16; TEMP 96.4
== END ==
LOC: PROCWHC3 13:19
PROVIDERS: ATTEND Family Medicine
DX: M81.0 Age-related osteoporosis without current pathological fracture (principal)
CPT/HCPCS: 96365; J3489

== ENCOUNTER 2025-03-16 20:34 | Emergency (ER) | payer MEDICARE, OTHER ==
[2025-03-16 20:40] VITALS: RESP 18
--- NOTE | 2025-03-16 21:41 | CT ---
EXAMINATION TYPE: CT brain wo con DATE OF EXAM: 03/16/2025 9:23 PM COMPARISON: 03/03/2024 MRI. CLINICAL INDICATION: Female, 69 years old with history of head trauma, minor, normal mental status, f all TECHNIQUE: Brain: Axial CT images of the brain were obtained with coronal and sagittal reformats created and rev iewed. Contrast used: None. Oral contrast used: None. CT DLP: 1168.3 mGycm, Automated exposure control for dose reduction was used. FINDINGS: Brain: Extra-axial spaces: No abnormal extra-axial fluid collections. Ventricular system: Dilatation in proportion to cerebral atrophy. Cerebral parenchyma: Cerebral atrophy. No acute intraparenchymal hemorrhage or mass effect. The will -white junction is well differentiated. Scattered hypoattenuating areas are seen within the white mat ter. Cerebellum: Unremarkable. Mass effect: No evidence of midline shift. Intracranial vasculature: Atherosclerotic calcifications of the intracranial vessels. Soft tissues: No soft tissue laceration definitively visualized. Calvarium/osseous structures: No depressed skull fracture. Paranasal sinuses and mastoid air cells: Mild scattered paranasal sinus disease. Visualized orbits: Bilateral aphakia IMPRESSION: 1. No acute intracranial process. 2. Nonspecific white matter changes, likely secondary to chronic small vessel ischemic disease. 3. No soft tissue laceration definitively visualized. [facility], , 03/16/2025 9:39 PM
--- NOTE | 2025-03-16 21:54 | XR ---
EXAMINATION TYPE: XR elbow complete RT DATE OF EXAM: 03/16/2025 9:26 PM COMPARISON: None CLINICAL INDICATION: Female, 69 years old with history of fall; PHH, pain TECHNIQUE: XR elbow complete RT; elbow was examined in AP, lateral, and oblique projections. FINDINGS: There is an acute fracture through the olecranon process with intra-articular extension wit h 2.0 cm of displacement. There is a moderate joint effusion present. The radius appears intact. The humerus appears intact. Soft tissue swelling over the elbow noted. IMPRESSION: Acute displaced fracture of the olecranon process with a 2.0 cm displacement. No additional fractures visualized. [facility], , 03/16/2025 9:52 PM
--- NOTE | 2025-03-16 22:29 | ED ---
Fall HPI - General Chief Complaint: Fall Stated Complaint: Fall-Head Injury Time Seen by Provider: 03/16/25 20:42 Source: patient, family, RN notes reviewed - History of Present Illness Initial Comments: 69-year-old female w/hx of vertigo and dementia presenting with family ( and daughter, Meghan) to ED for fall. She fell after experiencing dizziness and started moving forward resulting in a fall onto cement. She was alone at the time of fall and states head pain and right elbow pain. Family states she fell onto the right side and hit head. Denies LOC, BESS, vision changes, n/v/d, urinary or bowel symptoms. Her believes her hearing is off and has affected her balance. No other concerns at this time. No other concerns at this time. - Related Data Home Medications Medication Instructions Recorded Confirmed Lisinopril [Prinivil] 5 mg PO DAILY 03/17/15 12/12/24 Montelukast [Singulair] 10 mg PO DAILY 10/09/19 12/12/24 Aspirin EC [Ecotrin Low Dose] 162 mg PO ONCE PRN 06/29/21 12/12/24 FLUoxetine HCL [PROzac] 40 mg PO DAILY 06/29/21 12/12/24 Breztri Inhaler 1 applicate IH DAILY PRN 10/20/21 12/12/24 Fluticasone Nasal [place] [Flonase 1 spray EA NOSTRIL DAILY 10/20/21 12/12/24 Nasal [place]] Ibuprofen 200 mg PO DIRECTED PRN 10/20/21 12/12/24 Iron Gentle 28 mg PO DAILY 10/20/21 12/12/24 Omeprazole 40 mg PO BID 10/20/21 12/12/24 buPROPion HCL [Wellbutrin XL] 150 mg PO DAILY 10/20/21 12/12/24 polyethylene glycoL 3350 [Miralax] 17 gm PO DAILY 10/20/21 12/12/24 Donepezil [Aricept] 5 mg PO HS 12/12/24 12/12/24 Memantine [Namenda] 10 mg PO BID 12/12/24 12/12/24 Allergies Allergy/AdvReac Type Severity Reaction Status Date / Time amoxicillin Allergy Unknown Verified 03/16/25 20:36 azithromycin Allergy Rash/Hives Verified 03/16/25 20:36 denosumab [From Prolia] Allergy Unknown Verified 03/16/25 20:36 erythromycin base Allergy Unknown Verified 03/16/25 20:36 latex Allergy Itching/aries Verified 03/16/25 20:36 h methylprednisolone Allergy Unknown Verified 03/16/25 20:36 [From Medrol] naproxen [From Naprosyn] Allergy Itching Verified 03/16/25 20:36 ofloxacin [From Floxin] Allergy Rash/Hives Verified 03/16/25 20:36 Quinolones Allergy Unknown Verified 03/16/25 20:36 Sulfa (Sulfonamide Allergy Rash/Hives Verified 03/16/25 20:36 Antibiotics) sulfamethoxazole Allergy Rash/Hives Verified 03/16/25 20:36 [From Bactrim] trimethoprim [From Bactrim] Allergy Rash/Hives Verified 03/16/25 20:36 "mycin" family Allergy Unknown Uncoded 03/16/25 20:36 Review of Systems ROS Statement: Those systems with pertinent positive or pertinent negative responses have been documented in the HPI. ROS Other: All systems not noted in ROS Statement are negative. Constitutional: Denies: fever, chills Respiratory: Denies: cough, dyspnea Cardiovascular: Denies: chest pain, palpitations Endocrine: Denies: fatigue Gastrointestinal: Denies: abdominal pain, nausea, vomiting Genitourinary: Denies: urgency, dysuria Skin: Denies: rash, lesions Neurological: Denies: headache Past Medical History Past Medical History: Asthma, CVA/TIA, GERD/Reflux, Hypertension, Memory Impairment, Musculoskeletal Disorder, Osteoarthritis (OA), Skin Disorder Additional Past Medical History / Comment(s): Osteoporosis, TIA 5-6 yrs ago-no residual effects (MRI showed left lacunar infarct),, heart palpitations. Some memory issues at times. Seborrheic Keratosis - have moles all over my body. Vertigo. gastritis, anemia, chronic constipation, cervical radiculopathy, has issue with iron transfusion History of Any Multi-Drug Resistant Organisms: None Reported Past Surgical History: Section, Ear Surgery, Hysterectomy Additional Past Surgical History / Comment(s): Titanium in right ear/titanium later replaced., rt mastoidectomy,colonoscopy, EGD Past Anesthesia/Blood Transfusion Reactions: Motion Sickness, Postoperative Nausea & Vomiting (PONV) Additional Past Anesthesia/Blood Transfusion Reaction / Comment(s): Vertigo. Past Psychological History: Anxiety, Depression Smoking Status: Never smoker - Past Family History Mother Family Medical History: No Reported History Father Family Medical History: Myocardial Infarction ([place]) Brother(s) Family Medical History: Cancer Additional Family Medical History / Comment(s): Lung Cancer. General Exam Limitations: no limitations General appearance: alert, in no apparent distress Expanded Head exam: Present: abrasion (Small right frontal abrasion) Eye exam: Present: normal appearance Pupils: Present: normal accommodation Respiratory exam: Present: normal lung sounds bilaterally. Absent: respiratory distress, wheezes Cardiovascular Exam: Present: regular rate, normal rhythm GI/Abdominal exam: Present: soft. Absent: distended, tenderness Neurological exam: Present: alert, oriented X3 Psychiatric exam: Present: normal affect, normal mood Skin exam: Present: warm, dry, intact, abrasion (Small abrasion noted on right forearm) Course Vital Signs 03/16/25 03/16/25 20:36 23:00 Temperature 97.4 F L 97.9 F Pulse Rate 68 58 L Respiratory 18 18 Rate Blood Pressure 136/74 171/91 O2 Sat by Pulse 97 97 Oximetry Medical Decision Making - Medical Decision Making Was pt. sent in by a medical professional or institution (, KRISTI, BUILDING CONSTRUCTION PROFESSOR, urgent care, hospital, or long term...) When possible be specific @ -No Did you speak to anyone other than the patient for history (EMS, parent, family, police, friend...)? What history was obtained from this source @ -No Did you review nursing and triage notes (agree or disagree)? Why? @ -I reviewed and agree with nursing and triage notes Were old charts reviewed (outside hosp., previous admission, EMS record, old EKG, old radiological studies, urgent care reports/EKG's, long term records)? Report findings @ -No old charts were reviewed Differential Diagnosis? @ -Differential Syncope: Valvular disease, hypertrophic cardiomyopathy, pulmonary embolism, tamponade, tachycardia, bradycardia, VA, hypovolemia, hemorrhage, dissection, anemia, intracranial hemorrhage, seizure, hypoglycemia, carbon monoxide poisoning, this is not meant to be an all-inclusive list. EKG interpreted by me (3pts min.). @ -As above X-rays interpreted by me (1pt min.). @ -X-ray shows acute displaced fracture of olecranon process with [address] interpreted by me (1pt min.). @ -CT shows no acute intracranial hemorrhage. U/S interpreted by me (1pt. min.). @ -None done What testing was considered but not performed or refused? (CT, X-rays, U/S, labs)? Why? @ -None What meds were considered but not given or refused? Why? @ -None Did you discuss the management of the patient with other professionals (professionals i.e. DrMat, PA, BUILDING CONSTRUCTION PROFESSOR, lab, RT, psych nurse, social sciences chair, cloth folder hand, teacher, accounts officer, patient case coordinator)? Give summary @ -Case was discussed with ED admitting physician Dr. Novoa. Was smoking cessation discussed for >3mins.? @ -No Was critical care preformed (if so, how long)? @ -No Were there social determinants of health that impacted care today? How? (Homelessness, low income, unemployed, alcoholism, drug addiction, transportation, low edu. Level, literacy, decrease access to med. care, fci, rehab)? @ -No Was there de-escalation of care discussed even if they declined (Discuss DNR or withdrawal of care, Hospice)? DNR status @ -No What co-morbidities impacted this encounter? (DM, HTN, Smoking, COPD, CAD, Cancer, CVA, ARF, Chemo, Hep., AIDS, mental health diagnosis, sleep apnea, morbid obesity)? @ -None Was patient admitted / discharged? Hospital course, mention meds given and route, prescriptions, significant lab abnormalities, going to OR and other pertinent info. @ -Immobilizing splint was placed in ER. Patient was discharged home with self- care. Patient to follow-up with PCP in 1 to 2 days patient to follow-up with orthopedics outpatient. Undiagnosed new problem with uncertain prognosis? @ -No Drug Therapy requiring intensive monitoring for toxicity (Heparin, Nitro, Insulin, Cardizem)? @ -No Were any procedures done? @ -No Diagnosis/symptom? @ -Elbow fracture, fall Acute, or Chronic, or Acute on Chronic? @ -Acute Uncomplicated (without systemic symptoms) or Complicated (systemic symptoms)? @ -Default Side effects of treatment? @ -No Exacerbation, Progression, or Severe Exacerbation? @ -No Poses a threat to life or bodily function? How? (Chest pain, [place], VA, pneumonia, PE, COPD, DKA, ARF, appy, cholecystitis, CVA, Diverticulitis, Homicidal, Suicidal, threat to staff... and all critical care pts) @ -No Disposition Clinical Impression: Fall, Elbow fracture, right Disposition: HOME SELF-CARE Condition: Stable Additional Instructions: Every disease is a spectrum and a small chance still exists that a serious condition could develop, for this reason, please monitor yourself closely for new, changing or worsening symptoms, symptoms that persist beyond 48 hours, any further episodes of vomiting blood, difficulty in breathing, severe abdominal pain, symptoms that did not improve in the next 48 hours, black or bloody stools, fever, inability to tolerate/keep down fluids or your medications, inability to follow up with outpatient providers as instructed and should you experience these symptoms or should you have any further concerns for your wellbeing please return to the ED or call 911 immediately. PLEASE take prescriptions as listed in discharge instructions. PLEASE call your primary care physician as soon as possible to arrange / discuss plan for followup appointment. Appointment in the next 1-3 days is strongly encouraged if possible. PLEASE let us know here before you leave if there is anything further we can do to be of any assistance. Take care and feel Better! Is patient prescribed a controlled substance at d/c from ED?: No Referrals: Jean Marie Pereira MD [Primary Care Provider] - 1-2 days Katia Bermudez [Doctor of Osteopathic Medicine] - 1-2 days Time of Disposition: 22:00
[2025-03-16 23:06] VITALS: BP 171/91; PULSE 58; TEMP 97.9
== END 2025-03-16 23:00 | disposition home or self-care (01) ==
LOC: EC 20:34
DX: S42.401A Unspecified fracture of lower end of right humerus, initial encounter for closed fracture (principal); Z88.1 Allergy status to other antibiotic agents; Z88.6 Allergy status to analgesic agent; Z88.2 Allergy status to sulfonamides; Z88.0 Allergy status to penicillin; Z88.8 Allergy status to other drugs, medicaments and biological substances; W19.XXXA Unspecified fall, initial encounter
CPT/HCPCS: 70450; 99284

== ENCOUNTER 2025-03-26 09:59 | Day surgery (SDC) | payer MEDICARE ==
[~2025-03-26 09:59] MED LIST changes: +LIDOCAINE 1% (10MG/ML) FOR IV START INTRADERMA PRN; -SODIUM CHLORIDE 0.9% 250 ML in EMPTY BAG 1 BAG IV PRN
[2025-03-26] MEDS: IV FLUID CONTINUATION 1,000 ML IV ONE ×2 (10:24→18:00)
[2025-03-26] MEDS: ONDANSETRON 4 MG/2 ML VIAL IVP ONE (10:41)
[2025-03-26] MEDS: LACTATED RINGERS 1,000 ML IV SCH (10:41)
[2025-03-26] MEDS: MIDAZOLAM 2 MG/2 ML VIAL IV ONE (10:56)
[2025-03-26] MEDS ORDERED: MIDAZOLAM 2 MG/2 ML VIAL ONE (12:47)
[2025-03-26] MEDS ORDERED: KETAMINE HCL IN 0.9 % NACL 50 MG/5 ML SYRINGE ONE (12:47)
[2025-03-26] MEDS ORDERED: PROPOFOL 10 MG/ML 20 ML VIAL IV ONE (12:47)
[2025-03-26] MEDS ORDERED: ROPIVACAINE 5 MG/ML 30 ML VIAL ONE (12:47)
[2025-03-26] MEDS ORDERED: diphenhydrAMINE 50 MG/ML 1 ML VIAL ONE (12:47)
[2025-03-26] MEDS ORDERED: fentaNYL (PF) 50 MCG/ML 2 ML AMP ONE (12:47)
[2025-03-26] MEDS: ceFAZolin 2 GM in DEXTROSE 5% IN WATER 50 ML IVPB PRN (12:52)
[2025-03-26] MEDS: LACTATED RINGERS 1,000 ML IV ONE (13:38)
--- NOTE | 2025-03-26 14:17 | FL ---
EXAMINATION TYPE: FL guidance operating room, XR elbow limited RT DATE OF EXAM: 03/26/2025 CLINICAL INDICATION: Female, 69 years old with history of ORIF ELBOW FRACTURE, TECHNIQUE: Fluoroscopy. Intraoperative 2 views right elbow. COMPARISON: Right elbow x-ray March 08, 2025. FINDINGS: Fluoroscopic guidance was provided during open reduction internal fixation procedure perfo rmed by Dr. Bermudez. A total of 11.2 seconds of fluoroscopic time was utilized during the procedure and 2 spot images was acquired. TOTAL DAP= 0.0609 Gycm2. Images show placement of posterior fixating plate through comminuted displaced fracture of the olecra non. Satisfactory and improved alignment is seen after reduction and fixation. IMPRESSION: As Above. [facility], , 03/26/2025 2:15 PM
[2025-03-26] MEDS: HYDROmorphone 0.5 MG/0.5 ML SYRINGE IVP PRN (14:30)
--- NOTE | 2025-03-26 16:05 | P.OP ---
Date of Procedure: 03/26/25 Preoperative Diagnosis: Right olecranon fracture Postoperative Diagnosis: same Procedure(s) Performed: Right olecranon open reduction internal fixation Implants: Stephanie olecranon plate Anesthesia: MAC, regional Surgeon: Katia Bermudez Wood Strip Block Floor Installer #1: Kathryn Hyman Estimated Blood Loss (ml): 70 Pathology: none sent Condition: stable Disposition: PACU Indications for Procedure: Patient had a fall and sustained a transverse, displaced olecranon fracture. After a discussion of treatment options with the patient and her dauther, we have decided to proceed with operative fixation. Description of Procedure: The patient, operative extremity, and procedure were identified in the preoperative area. The patient received a regional block. She was then brought back to the OR and placed in a lateral decubitus position with the operative arm resting on an arm board. The extremity was prepped and draped with a sterile tourniquet on the arm. A formal timeout was performed. A curvilinear incision was made over the olecranon. Dissection was carried down to the level of the triceps tendon. A longitudinal split was made in the tendon to facilitate the plate. The split was extended distally through the periosteom of the ulnar shaft. The frature site was identified and cleaned with a ronqeur and suction. A small drill was utilized to create a hole in the shaft for purchase of the point to point reduction clamp. The clamp was then used to aid the reduction and temporary fization of the fracture. A plate was selcted and provisionally held with a screw in the oblong hole. The home run screw was then drilled and nonlocking screw was inserted to pull the plate closer to the tip of the olecranon. Reduction and hardware placement was confirmed on fluroscopy. The remaining screw holes were then filled with a mixture of locking and nonlocking screws. Final XR showed acceptable reduction and placement of hardware. The reduction clamp was removed. The area was irrigated with normal saline. The split in the tendon was repaired with 0 vicryl. Tourniquet was let down, hemostasis achieved and the wound was closed in a layered fashion with vicryl, monocryl, and skin glue. The wound was dressed and padded and then placed into a long arm split with the elbow at about 80 degrees of flexion. Patient was aroused and brought to PACU in stable condition. The skilled assistance of the midlevel providor was necessary throughout the case to aid in exposure and reduction.
--- NOTE | 2025-03-26 20:13 | P.CRDCN ---
History of Present Illness History of present illness: Cardiology consulted for chest discomfort by anesthesia, patient waiting to be d ischarged I spoke to the patient at 8 PM after I finished my procedure Scan first twelve-lead EKG in the EMR Repeat twelve-lead EKG and scanned in EMR Repeat troponin 2D echo tomorrow morning Cardiology consultation Admit overnight for observation Patient will be seen tomorrow morning Past Medical History Past Medical History: Asthma, CVA/TIA, GERD/Reflux, GI Bleed, Hearing Disorder / Deafness, Hypertension, Memory Impairment, Musculoskeletal Disorder, Osteoarthritis (OA), Skin Disorder Additional Past Medical History / Comment(s): Osteoporosis, TIA 5-6 yrs ago-no residual effects (MRI showed left lacunar infarct),, heart palpitations. Some memory issues at times. Seborrheic Keratosis - have moles all over my body. Vertigo. gastritis, anemia, chronic constipation, cervical radiculopathy, has issue with iron transfusion. Dx Alzheimer's. 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 Hx cleft palate History of Any Multi-Drug Resistant Organisms: None Reported Past Surgical History: Section, Ear Surgery, Hysterectomy, Orthopedic Surgery, Tonsillectomy Additional Past Surgical History / Comment(s): Titanium in right ear/titanium later replaced., rt mastoidectomy,colonoscopy, EGD. Hx cleft palate-Pharyngeal flap. Bilat cataract surgery. Plate screws to lt foot. Past Anesthesia/Blood Transfusion Reactions: Motion Sickness, Postoperative Nausea & Vomiting (PONV) Additional Past Anesthesia/Blood Transfusion Reaction / Comment(s): Vertigo. No blood transfusion to date. Smoking Status: Former smoker - Past Family History Mother Family Medical History: No Reported History Father Family Medical History: Myocardial Infarction ([place]) Brother(s) Family Medical History: Cancer Additional Family Medical History / Comment(s): Lung Cancer. Medications and Allergies Home Medications Medication Instructions Recorded Confirmed Type RX: Lisinopril [Prinivil] 5 mg PO QAM 03/17/15 03/23/25 History RX: Montelukast [Singulair] 10 mg PO HS 10/09/19 03/26/25 History RX: Aspirin EC [Ecotrin Low Dose] 81 mg PO HS 06/29/21 03/23/25 History RX: FLUoxetine HCL [PROzac] 40 mg PO QAM 06/29/21 03/23/25 History Fluticasone Nasal [place] [Flonase 1 spray EA NOSTRIL QAM PRN 10/20/21 03/26/25 History Nasal [place]] Iron Gentle 28 mg PO QAM 10/20/21 03/23/25 History RX: Ibuprofen 200 mg PO DIRECTED PRN 10/20/21 03/23/25 History RX: Omeprazole 40 mg PO QAM 10/20/21 03/23/25 History buPROPion HCL [Wellbutrin XL] 300 mg PO QAM 10/20/21 03/23/25 History polyethylene glycoL 3350 [Miralax] 17 gm PO QAM PRN 10/20/21 03/26/25 History Donepezil [Aricept] 5 mg PO HS 12/12/24 03/26/25 History Memantine [Namenda] 10 mg PO BID 12/12/24 03/26/25 History Acetaminophen [Tylenol Extra 500 mg PO DIRECTED PRN 03/23/25 03/26/25 History Strength] Fluticasone Propion/Salmeterol 1 puff INHALATION BID PRN 03/26/25 03/26/25 History [Advair 250-50 Diskus] traMADol HCl [Ultram] 50 mg PO Q6HR PRN #15 tab 03/26/25 Rx Allergies Allergy/AdvReac Type Severity Reaction Status Date / Time amoxicillin Allergy Unknown Verified 03/26/25 10:24 azithromycin Allergy Rash/Hives Verified 03/26/25 10:24 denosumab [From Prolia] Allergy Unknown Verified 03/26/25 10:24 erythromycin base Allergy Unknown Verified 03/26/25 10:24 latex Allergy Itching/aries Verified 03/26/25 10:24 h methylprednisolone Allergy Unknown Verified 03/26/25 10:24 [From Medrol] naproxen [From Naprosyn] Allergy Itching Verified 03/26/25 10:24 ofloxacin [From Floxin] Allergy Rash/Hives Verified 03/26/25 10:24 Quinolones Allergy Unknown Verified 03/26/25 10:24 Sulfa (Sulfonamide Allergy Rash/Hives Verified 03/26/25 10:24 Antibiotics) sulfamethoxazole Allergy Rash/Hives Verified 03/26/25 10:24 [From Bactrim] trimethoprim [From Bactrim] Allergy Rash/Hives Verified 03/26/25 10:24 "mycin" family Allergy Unknown Uncoded 03/26/25 10:24 Physical Exam Vitals: Vital Signs Pulse Pulse Pulse Resp BP Pulse Ox 03/26/25 19:15 73 17 159/86 92 L 03/26/25 18:45 69 15 158/86 98 03/26/25 18:15 72 16 144/77 98 03/26/25 17:45 76 16 157/86 97 03/26/25 17:11 78 18 171/95 98 03/26/25 16:45 70 18 159/87 98 03/26/25 16:20 72 17 161/91 96 03/26/25 16:05 63 18 163/90 94 L 03/26/25 15:50 68 18 141/75 90 L 03/26/25 15:35 60 17 142/81 93 L 03/26/25 15:20 59 L 16 146/73 94 L 03/26/25 15:05 63 15 154/80 96 03/26/25 14:50 58 L 16 138/81 97 03/26/25 14:35 58 L 16 151/87 99 03/26/25 14:21 56 L 16 161/83 96 03/26/25 12:25 70 16 147/89 98 03/26/25 10:57 71 16 148/82 97 Intake and Output 03/26/25 03/26/25 03/26/25 06:59 14:59 22:59 Intake Total 1250 Output Total 50 Balance 1200 Intake: IV 1250 Output: Estimated Blood Loss 50 Other: Weight 59.4 kg Results Cardiac Enzymes 03/26/25 Range/Units 16:24 Troponin I <0.012 (0.000-0.034) ng/mL Current Medications Generic Name Dose Route Start Last Admin Trade Name Freq PRN Reason Stop Dose Admin Hydromorphone HCl 0.5 mg 03/26/25 07:00 03/26/25 14:30 Hydromorphone 0.5 Mg/0.5 Ml Syringe IVP 03/26/25 23:00 0.25 mg Q5M PRN Administration Phase 1 or 2 - Pain Control Lactated Ringer's 1,000 mls @ 20 mls/hr 03/26/25 06:30 03/26/25 16:05 Lactated Ringers IV 04/25/25 06:29 20 mls/hr .Q24H HARSHA Administration Lidocaine HCl 0.1 ml 03/26/25 06:30 Lidocaine 1% (10mg/Ml) For Iv Start INTRADERMA 04/25/25 06:29 PER PROTOCOL PRN IV Start Intake and Output 03/26/25 03/26/25 03/26/25 06:59 14:59 22:59 Intake Total 1250 Output Total 50 Balance 1200 Intake: IV 1250 Output: Estimated Blood Loss 50 Other: Weight 59.4 kg Patient Weight 03/27/25 06:59 Weight 59.4 kg
[2025-03-26] MEDS ORDERED: NALOXONE 0.4 MG/ML 1 ML VIAL IVP PRN (20:26)
[2025-03-26] MEDS ORDERED: FLUTICASONE NASAL 50MCG/SPRAY 16GM BTL EA NOSTRIL PRN (20:28)
[2025-03-26] MEDS ORDERED: polyethylene glycoL 3350 17 GM POWD.PACK PO PRN (20:28)
--- NOTE | 2025-03-26 21:20 | XR ---
EXAMINATION TYPE: XR chest 1V portable DATE OF EXAM: 03/26/2025 8:40 PM COMPARISON: 06/29/2021 CLINICAL INDICATION: Female, 69 years old with history of Chest Pain, TECHNIQUE: XR chest 1V portable view(s) obtained. FINDINGS: The heart size is prominent. The pulmonary vasculature is normal. There may be some minimal lingular infiltrate. Correlate for atelectasis or pneumonia.. IMPRESSION: 1. Mild lingular infiltrate. Correlate for atelectasis and pneumonia. [facility], Workstation: [facility], 03/26/2025 9:18 PM
[2025-03-26] MEDS: SYMBICORT 80-4.5 MCG INHALER INHALATION SCH (21:37)
[2025-03-26] MEDS: DONEPEZIL 5 MG TAB PO SCH (21:50)
[2025-03-26] MEDS: METOPROLOL TARTRATE 12.5 MG TAB PO SCH (21:50)
[2025-03-26] MEDS: MEMANTINE 10 MG TAB PO SCH (21:50)
[2025-03-26] MEDS: MONTELUKAST 10 MG TAB PO SCH (21:50)
[2025-03-26 22:07] LABS: Basophils # (A) 0.07 10*3/uL (0.00-0.10); Basophils % (A) 0.7 %; Eosinophils # (A) 0.02 10*3/uL (0.04-0.35); Eosinophils % (A) 0.2 %; HCT 33.9 % (37.2-46.3); HGB 11.4 g/dL (12.0-15.0); Lymphocytes # (A) 1.92 10*3/uL (0.90-5.00); Lymphocytes % (A) 19.3 %; MCH 30.8 pg (27.0-32.0); MCHC 33.6 g/dL (32.0-37.0); MCV 91.6 fL (80.0-97.0); Mean Platelet Volume 10.5 fL (9.5-12.2); Monocytes # (A) 0.73 10*3/uL (0.20-1.00); Monocytes % (A) 7.3 %; Neutrophils % (A) 72.3 %; Platelet Count 311 10*3/uL (140-440); RDW 13.4 % (11.5-14.5); WBC 9.96 10*3/uL (4.50-10.00)
[2025-03-26 22:20] LABS: ALT 10 U/L (4-34); AST 20 U/L (14-36); African American GFR (CKD) >90 (>60 ml/min/1.73 sqM); Albumin 3.5 g/dL (3.5-5.0); Alkaline Phosphatase 67 U/L (38-126); Anion Gap 9 mmol/L; Blood Urea Nitrogen 14 mg/dL (7-17); Calcium 9.3 mg/dL (8.4-10.2); Carbon Dioxide 24 mmol/L (22-30); Chloride 102 mmol/L (98-107); Glucose 114 mg/dL (74-99); Non-African American GFR(CKD) 80 (>60 ml/min/1.73 sqM); Potassium 3.7 mmol/L (3.5-5.1); Sodium 135 mmol/L (137-145); Total Bilirubin 0.5 mg/dL (0.2-1.3); Total Protein 5.9 g/dL (6.3-8.2)
[2025-03-26 22:28] LABS: NT-Pro-B-Type Natriuretic Pept 1830 pg/mL
[2025-03-26] MEDS: ASPIRIN 81 MG PO SCH (23:07)
[2025-03-26] MEDS: traMADol 50 MG TAB PO PRN (23:07)
--- NOTE | 2025-03-26 23:20 | P.HPIM ---
History of Present Illness H&P Date: 03/26/25 Chief Complaint: Chest pain 69-year-old woman with medical history of hearing impairment, dementia, asthma, hypertension, depression presented for elective same-day surgery for ORIF of olecranon fracture. Postoperatively, patient complained of chest pain and medicine was asked to admit the patient to observation for further evaluation. At the time my evaluation, patient declined any chest pain. I did receive history from PACU nursing, who supplements this history. Apparently, patient was having difficulty weaning off of oxygen back to room air and she would frequently desat, with suspicion that her supraclavicular nerve block was complicated by hemidiaphragmatic paralysis causing hypoxia. After observation throughout the day, it was noted that patient complained of chest pain, however, she noted that this was reproducible to palpation. Patient's only complaint at this time is her elbow pain which is relieved with tramadol. She otherwise denies fevers, chills, palpitations, dyspnea. Upon arrival to the floor, patient was afebrile, 167/84, heart rate 73, 94% on 2 L nasal cannula. CBC was notable for anemia down to 11.4. Basic metabolic panel is unremarkable. Liver function test show low total protein of 5.9, otherwise unremarkable. Troponins were negative x 3. BNP was 1830. TSH was 3.01. D-dimer was 1.92. Elbow x-ray showed satisfactory and improved alignment after ORIF. Chest x-ray, personally interpreted, appears to have increased pul monary vascularity despite being overexposed, possible lingular infiltrate, but this is difficult to appreciate with the film rotation. Patient will be admitted to observation for atypical chest pain and hypoxia. All Systems reviewed and pertinent positives and negatives noted in HPI, all other symptoms are negative Gen: In NAD, non-toxic HEENT: normocephalic, atraumatic, hearing acuity is intant, mucous membranes moist CVS: perfusing all extremities well, no pitting edema, Respiratory: symmetric chest expansion, no accessory muscle use, GI: soft, NTTP, ND, : no suprapubic tenderness, no CVA tenderness MSK/Derm: no rashes, cyanosis Neuro: CN II-XII intact, no motor weakness, Psych: cooperative, euthymic mood, judgment and insight is intact Labs and imaging as above Assessment/plan: Acute hypoxemic respiratory failure Atypical chest pain -Admit to observation, telemetry - Oxygen as needed - Speech therapy consult for possible aspiration - Encourage incentive spirometry - Echocardiogram is pending, hold off on Lasix for now, hold off on IV fluids for now - Strict intake/outtake, daily weights - Troponins are negative - Lipid panel, A1c, TSH - Aspirin, metoprolol, statin - Cardiology was consulted Status post ORIF of olecranon fracture -Pain control: Tramadol as needed, Tylenol as needed - Bowel regimen - Outpatient orthopedic surgery follow-up Dementia Asthma without exacerbation Hypertension Depression -Home medications reviewed and reconciled Patient is full code Past Medical History Past Medical History: Asthma, CVA/TIA, GERD/Reflux, GI Bleed, Hearing Disorder / Deafness, Hypertension, Memory Impairment, Musculoskeletal Disorder, Osteoarthritis (OA), Skin Disorder Additional Past Medical History / Comment(s): Osteoporosis, TIA 5-6 yrs ago-no residual effects (MRI showed left lacunar infarct),, heart palpitations. Some memory issues at times. Seborrheic Keratosis - have moles all over my body. Vertigo. gastritis, anemia, chronic constipation, cervical radiculopathy, has issue with iron transfusion. Dx Alzheimer's. 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 Hx cleft palate History of Any Multi-Drug Resistant Organisms: None Reported Past Surgical History: Section, Ear Surgery, Hysterectomy, Orthopedic Surgery, Tonsillectomy Additional Past Surgical History / Comment(s): Titanium in right ear/titanium later replaced., rt mastoidectomy,colonoscopy, EGD. Hx cleft palate-Pharyngeal flap. Bilat cataract surgery. Plate screws to lt foot. Past Anesthesia/Blood Transfusion Reactions: Motion Sickness, Postoperative Nausea & Vomiting (PONV) Additional Past Anesthesia/Blood Transfusion Reaction / Comment(s): Vertigo. No blood transfusion to date. Past Psychological History: Anxiety, Depression Smoking Status: Former smoker Past Alcohol Use History: Occasional Additional Past Alcohol Use History / Comment(s): Smoked from age 17 to 29. Past Drug Use History: None Reported - Past Family History Mother Family Medical History: No Reported History Father Family Medical History: Myocardial Infarction (NH) Brother(s) Family Medical History: Cancer Additional Family Medical History / Comment(s): Lung Cancer. Medications and Allergies Home Medications Medication Instructions Recorded Confirmed Type Lisinopril [Prinivil] 5 mg PO QAM 03/17/15 03/23/25 History Montelukast [Singulair] 10 mg PO HS 10/09/19 03/26/25 History Aspirin EC [Ecotrin Low Dose] 81 mg PO HS 06/29/21 03/23/25 History FLUoxetine HCL [PROzac] 40 mg PO QAM 06/29/21 03/23/25 History Fluticasone Nasal [place] [Flonase 1 spray EA NOSTRIL QAM PRN 10/20/21 03/26/25 History Nasal [place]] Ibuprofen 200 mg PO DIRECTED PRN 10/20/21 03/23/25 History Iron Gentle 28 mg PO QAM 10/20/21 03/23/25 History Omeprazole 40 mg PO QAM 10/20/21 03/23/25 History buPROPion HCL [Wellbutrin XL] 300 mg PO QAM 10/20/21 03/23/25 History polyethylene glycoL 3350 [Miralax] 17 gm PO QAM PRN 10/20/21 03/26/25 History Donepezil [Aricept] 5 mg PO HS 12/12/24 03/26/25 History Memantine [Namenda] 10 mg PO BID 12/12/24 03/26/25 History Acetaminophen [Tylenol Extra 500 mg PO DIRECTED PRN 03/23/25 03/26/25 History Strength] Fluticasone Propion/Salmeterol 1 puff INHALATION BID PRN 03/26/25 03/26/25 History [Advair 250-50 Diskus] traMADol HCl [Ultram] 50 mg PO Q6HR PRN #15 tab 03/26/25 Rx Allergies Allergy/AdvReac Type Severity Reaction Status Date / Time amoxicillin Allergy Unknown Verified 03/26/25 10:24 azithromycin Allergy Rash/Hives Verified 03/26/25 10:24 denosumab [From Prolia] Allergy Unknown Verified 03/26/25 10:24 erythromycin base Allergy Unknown Verified 03/26/25 10:24 latex Allergy Itching/aries Verified 03/26/25 10:24 h methylprednisolone Allergy Unknown Verified 03/26/25 10:24 [From Medrol] naproxen [From Naprosyn] Allergy Itching Verified 03/26/25 10:24 ofloxacin [From Floxin] Allergy Rash/Hives Verified 03/26/25 10:24 Quinolones Allergy Unknown Verified 03/26/25 10:24 Sulfa (Sulfonamide Allergy Rash/Hives Verified 03/26/25 10:24 Antibiotics) sulfamethoxazole Allergy Rash/Hives Verified 03/26/25 10:24 [From Bactrim] trimethoprim [From Bactrim] Allergy Rash/Hives Verified 03/26/25 10:24 "mycin" family Allergy Unknown Uncoded 03/26/25 10:24 Physical Exam Osteopathic Statement: *. No significant issues noted on an osteopathic structural exam other than those noted in the History and Physical/Consult. Vitals: Vital Signs Temp Pulse Pulse Pulse Resp BP Pulse Ox 03/26/25 21:30 98.3 F 73 16 167/84 94 L 03/26/25 21:00 67 18 150/81 95 03/26/25 20:30 72 17 156/89 95 03/26/25 20:00 75 15 156/81 96 03/26/25 19:15 73 17 159/86 92 L 03/26/25 18:45 69 15 158/86 98 03/26/25 18:15 72 16 144/77 98 03/26/25 17:45 76 16 157/86 97 03/26/25 17:11 78 18 171/95 98 03/26/25 16:45 70 18 159/87 98 03/26/25 16:20 72 17 161/91 96 03/26/25 16:05 63 18 163/90 94 L 03/26/25 15:50 68 18 141/75 90 L 03/26/25 15:35 60 17 142/81 93 L 03/26/25 15:20 59 L 16 146/73 94 L 03/26/25 15:05 63 15 154/80 96 03/26/25 14:50 58 L 16 138/81 97 03/26/25 14:35 58 L 16 151/87 99 03/26/25 14:21 56 L 16 161/83 96 03/26/25 12:25 70 16 147/89 98 03/26/25 10:57 71 16 148/82 97 Intake and Output 03/26/25 03/26/25 03/27/25 14:59 22:59 06:59 Intake Total 2049 300 Output Total 50 Balance 1999 300 Intake: IV 2049 300 Output: Estimated Blood Loss 50 Other: Weight 59.4 kg 59.4 kg Results CBC & Chem 7: 03/26/25 21:31 03/26/25 21:31 Labs: Abnormal Lab Results - Last 24 Hours (Table) 03/26/25 03/26/25 03/26/25 Range/Units 21:31 21:31 21:31 RBC 3.70 L (4.10-5.20) 10*6/uL Hgb 11.4 L (12.0-15.0) g/dL Hct 33.9 L (37.2-46.3) % Eosinophils # 0.02 L (0.04-0.35) 10*3/uL D-Dimer 1.92 H (<0.60) mg/L FEU Sodium 135 L (137-145) mmol/L Glucose 114 H (74-99) mg/dL Total Protein 5.9 L (6.3-8.2) g/dL Thrombosis Risk Factor Assmnt - Choose All That Apply Any of the Below Risk Factors Present?: No Other Risk Factors: Yes Each Risk Factor Represents 2 Points: Age 61-74 years Thrombosis Risk Factor Assessment Total Risk Factor Score: 2 Thrombosis Risk Factor Assessment Level: Low Risk
[2025-03-27] MEDS: ACETAMINOPHEN TAB 325 MG TAB PO PRN (03:18)
[2025-03-27 07:15] LABS: Basophils # (A) 0.04 10*3/uL (0.00-0.10); Basophils % (A) 0.4 %; Eosinophils # (A) 0.03 10*3/uL (0.04-0.35); Eosinophils % (A) 0.3 %; HCT 34.4 % (37.2-46.3); HGB 11.5 g/dL (12.0-15.0); Lymphocytes # (A) 1.96 10*3/uL (0.90-5.00); Lymphocytes % (A) 21.5 %; MCH 30.5 pg (27.0-32.0); MCHC 33.4 g/dL (32.0-37.0); MCV 91.2 fL (80.0-97.0); Mean Platelet Volume 10.3 fL (9.5-12.2); Monocytes # (A) 0.91 10*3/uL (0.20-1.00); Neutrophils # (A) 6.16 10*3/uL (1.80-7.70); Neutrophils % (A) 67.5 %; Platelet Count 303 10*3/uL (140-440); RBC 3.77 10*6/uL (4.10-5.20); RDW 13.4 % (11.5-14.5); WBC 9.13 10*3/uL (4.50-10.00)
[2025-03-27 07:30] LABS: African American GFR (CKD) 87 (>60 ml/min/1.73 sqM); Anion Gap 6 mmol/L; Blood Urea Nitrogen 9 mg/dL (7-17); Calcium 9.4 mg/dL (8.4-10.2); Carbon Dioxide 27 mmol/L (22-30); Chloride 105 mmol/L (98-107); Glucose 113 mg/dL (74-99); Magnesium 1.9 mg/dL (1.6-2.3); Non-African American GFR(CKD) 75 (>60 ml/min/1.73 sqM); Potassium 3.7 mmol/L (3.5-5.1); Sodium 138 mmol/L (137-145)
[2025-03-27] MEDS ORDERED: ASPIRIN 81 MG PO SCH (09:00)
[2025-03-27] MEDS: FLUoxetine HCL 20 MG CAP PO SCH (09:30)
[2025-03-27] MEDS: PANTOPRAZOLE 40 MG TABLET PO SCH (09:30)
[2025-03-27] MEDS: ATORVASTATIN 80 MG TAB PO SCH (09:30)
[2025-03-27] MEDS: lisinopriL 5 MG TAB PO SCH (09:30)
[2025-03-27] MEDS: buPROPion XL 300 MG TAB.ER.24H PO SCH (09:37)
[2025-03-27 09:44] VITALS: TEMP 98.3
--- NOTE | 2025-03-27 10:28 | CT ---
EXAMINATION TYPE: CT chest angio for PE CT DLP: 216.7 mGycm, Automated exposure control for dose reduction was used. DATE OF EXAM: 03/27/2025 10:15 AM COMPARISON: Chest radiograph 03/26/2025, CT abdomen and pelvis 03/17/2015 CLINICAL INDICATION:Female, 69 years old with history of Elevated d-dimer, hypoxia and CP post op; Po st op surgery, hypoxia, elevated dimer. TECHNIQUE/CONTRAST: CTA scan of the thorax is performed with IV Contrast, patient injected with 60 mL of Isovue 370, pulm onary embolism protocol. MIP images are created and reviewed. FINDINGS: Pulmonary Artery: There is no evidence for a filling defect within the pulmonary vasculature to sugge st acute pulmonary embolism. The pulmonary artery is dilated measuring 3.5 cm in diameter. Lungs/Pleura: No evidence of focal consolidation, pleural effusion or pneumothorax. Bilateral lower l obe scattered linear subsegmental atelectasis. Airway: Large airways are patent. Heart: Cardiomegaly is demonstrated.No pericardial effusion. No significant coronary artery calcifica tions. Vasculature: No evidence of aortic aneurysm. Mediastinum: No gross evidence of adenopathy. Musculoskeletal: No acute osseous abnormalities. Stable left lateral ninth rib 9 mm sclerotic lesion consistent with a benign bone island. Soft Tissues: Unremarkable. Lower neck: Subcentimeter hypodense nodule within the left thyroid lobe. Upper Abdomen: Several hypodense simple appearing cysts redemonstrated within the liver largest measu ring up to 2.8 cm. Partial visualization of large left renal superior all cysts measuring up to 6.8 c m as seen on prior CT. No follow-up recommended. IMPRESSION: 1. No evidence of pulmonary embolism. 2. Bilateral lower lobe scattered regions of linear atelectasis. 3. Dilated main pulmonary artery which can be seen with pulmonary arterial hypertension. [facility], , 03/27/2025 10:25 AM
--- NOTE | 2025-03-27 10:49 | CA ---
Transthoracic Echo Report Name: Christina Rdz Age: 69 Gender: F : 1955 Exam Date: 03/27/2025 08:43 Exam Location: [facility] Ht (in): 65 Wt (lb): 130 Ordering Physician: Mal Mccarty MD ([id number]) Attending/Referring Phys: General Clerk Jamil Ware RDCS Procedure CPT: Indications: Chest Pain Cardiac Hx: Asthma, CVA, HTN Technical Quality: Good Contrast 1: Total Dose (mL): Contrast 2: Total Dose (mL): MEASUREMENTS (Male / Female) Normal Values 2D ECHO LV Diastolic Diameter PLAX 4.9 cm 4.2 - 5.9 / 3.9 - 5.3 cm LV Systolic Diameter PLAX 3.7 cm IVS Diastolic Thickness 1.0 cm 0.6 - 1.0 / 0.6 - 0.9 cm LVPW Diastolic Thickness 0.9 cm 0.6 - 1.0 / 0.6 - 0.9 cm LV Relative Wall Thickness 0.4 RV Internal Dim ED PLAX 2.9 cm LVOT Diameter 2.2 cm LA Systolic Diameter LX 4.5 cm 3.0 - 4.0 / 2.7 - 3.8 cm LV Diastolic Volume MOD BP 100.6 cm??? 67 - 155 / 56 - 104 cm??? LV Systolic Volume MOD BP 43.8 cm??? 22 - 58 / 19 - 49 cm??? LV Ejection Fraction MOD BP 56.4 % >= 55 % LV Cardiac Index MOD BP 2173.7 cm???/min???m??? LV Diastolic Volume MOD 4C 99.8 cm??? LV Systolic Volume MOD 4C 40.8 cm??? LV Ejection Fraction MOD 4C 59.1 % LV Cardiac Index MOD 4C 2257.7 cm???/min???m??? LV Diastolic Length 4C 7.0 cm LV Systolic Length 4C 6.0 cm LV Diastolic Volume MOD 2C 96.1 cm??? LV Systolic Volume MOD 2C 44.2 cm??? LV Ejection Fraction MOD 2C 54.0 % LV Cardiac Index MOD 2C 1986.9 cm???/min???m??? LV Diastolic Length 2C 6.6 cm LV Systolic Length 2C 5.6 cm LA Volume 89.9 cm??? 18 - 58 / 22 - 52 cm??? LA Volume Index 54.6 cm???/m??? 16 - 28 cm???/m??? DOPPLER MV Area PHT 5.3 cm??? Mitral E Point Velocity 58.3 cm/s Mitral A Point Velocity 53.5 cm/s Mitral E to A Ratio 1.1 MV Deceleration Time 142.6 ms TR Peak Velocity 298.1 cm/s TR Peak Gradient 35.6 mmHg Right Atrial Pressure 5.0 mmHg Pulmonary Artery Systolic Pressu 40.6 mmHg Right Ventricular Systolic Press 40.6 mmHg FINDINGS Left Ventricle Left ventricular ejection fraction is estimated at 55%. Mildly increased septal wall thickness. Normal left ventricular systolic function with no obvious regional wall motion abnormalities. Right Ventricle Normal right ventricular size and function. Mild pulmonary hypertension. Right ventricular systolic pressure estimated at 41 mm hg. Right Atrium Normal right atrial size. Left Atrium Moderately increased left atrial diameter. Severely increased left atrial volume. Mildly increased left atrial area. Mitral Valve Mitral annular calcification. No mitral stenosis. Mild mitral regurgitation. Aortic Valve Trileaflet aortic valve. No aortic stenosis. Trace aortic regurgitation. Tricuspid Valve Structurally normal tricuspid valve. No tricuspid stenosis. Mild tricuspid regurgitation. Pulmonic Valve Structurally normal pulmonic valve. No pulmonic stenosis. Mild pulmonic regurgitation. Pericardium No pericardial effusion. Aorta Normal size aortic root and proximal ascending aorta. CONCLUSIONS Normal LV size and systolic function. Enlarged left atrium. Mild mitral and tricuspid regurgitation. Mildly elevated PA pressures. No pericardial effusion Previewed by: Dr. Darlene Pringle MD (Electronically Signed) Final Date: 27 Mar 2025 10:48
--- NOTE | 2025-03-27 11:19 | P.ANPRN ---
Procedure Note - Anesthesia - Nerve Block Performed Right Supraclavicular Single Time Out Performed: Yes Date of Procedure: 03/27/25 Procedure Start Time: 10:41 Procedure Stop Time: 10:47 Location of Patient: PreOp Indication: Acute Post-Operative Pain, Requested by Surgeon Sedation Type: Sedate with meaningful contact maintained Preparation: Sterile Prep Position: Supine Needle Types: Pajunk Needle Gauge: 21 Ultrasound used to visualize needle placement: Yes Ultrasound used to observe medication spread: Yes Blood Aspirated: No Pain Paresthesia on Injection Noted: No Resistance on Injection: Normal Image Stored and Saved: Yes Events: Uneventful and Well Tolerated (Ropivacaine 0.5% 20 cc plus dexamethasone 4 mg. This)
[2025-03-27] MEDS: lisinopriL 5 MG TAB PO STA (11:33)
--- NOTE | 2025-03-27 12:26 | P.CRDCN ---
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 We have been asked to evaluate the patient for chest pain. Patient presented to the hospital and was admitted under the care of orthopedics and is status post open reduction internal fixation of the right olecranon due to a fracture sustained from fall. Apparently patient was being prepared for discharge after surgery yesterday but patient complained of right sided chest pain that was reproducible with palpation and it was decided that she needed to have a cardiology evaluation. Patient apparently had some lower extremity edema which is now gone. She has no new concerns today. Her right arm is in a cast and sling. Blood pressure 163/94, heart rate in the 60s, pulse ox 94% on 2 L nasal cannula. -EKG: Sinus rhythm incomplete left bundle branch block, nonspecific T wave changes unchanged from previous. -Chest x-ray: Mild lingular infiltrate. Correlate for atelectasis and pneumonia. -CTA chest: No pulmonary embolism. Atelectasis. Possible pulmonary hypertension. -Echocardiogram reveals EF 55%. Mild mitral and tricuspid regurgitation. -Laboratory studies: WBC 9.1, hemoglobin 1.5, D-dimer 1.92. Electrolytes and renal function are normal. Troponins are negative x 4. proBNP 1830. TSH is normal x 2 -Home cardiac medications: Aspirin 81 mg daily, lisinopril 5 mg daily. - Lexiscan Cardiolite stress test performed in 2020 revealed no reversible ischemia. Review Of Systems: At the time of my exam: CONSTITUTIONAL: Denies fever or chills. HEENT: Denies blurred vision, vision changes, or eye pain. Denies hemoptysis CARDIOVASCULAR: Denies chest pain. Denies orthopnea. Denies PND. Denies palpitations RESPIRATORY: Denies shortness of breath. GASTROINTESTINAL: Denies abdominal pain. Denies nausea or vomiting. HEMATOLOGIC: Denies bleeding disorders. GENITOURINARY: Denies any blood in urine. SKIN: Denies puritis. Denies rash. Physical examination: Gen: This is 69-year-old female in no acute distress VS: reviewed HEENT: Head is atraumatic, normocephalic. Pupils equal, round. Sclerae is anicteric. NECK: Supple. No JVD. LUNGS: Clear to auscultation. No wheezes or rhonchi. No intercostal retr actions. HEART: Regular rate and rhythm. No murmur. + Chest wall tenderness ABDOMEN: Soft No tenderness. EXTREMITIES: No pedal edema. No calf tenderness. NEUROLOGICAL: Patient is awake, alert and oriented x3. Assessment: Musculoskeletal chest pain secondary to recent fall Right olecranon fracture status post ORIF History of TIA Hypertension Chronic dizziness Remote history of tobacco use Plan: Resume patient's home cardiac medications with the following changes Continue aspirin 81 mg daily Add a atorvastatin 40 mg daily Change lisinopril to 10 mg twice daily Monitor blood pressure Encourage incentive spirometry Increase activity and up in a chair Monitor blood pressure Discontinue IV fluids If patient's blood pressure is controlled later this afternoon, patient is cleared for discharge from cardiology. Thank you kindly for this consultation. Nurse practitioner note has been reviewed, I agree with documented findings and plan of care. Patient was seen and examined. Past Medical History Past Medical History: Asthma, CVA/TIA, GERD/Reflux, GI Bleed, Hearing Disorder / Deafness, Hypertension, Memory Impairment, Musculoskeletal Disorder, Ost eoarthritis (OA), Skin Disorder Additional Past Medical History / Comment(s): Osteoporosis, TIA 5-6 yrs ago-no residual effects (MRI showed left lacunar infarct),, heart palpitations. Some memory issues at times. Seborrheic Keratosis - have moles all over my body. Vertigo. gastritis, anemia, chronic constipation, cervical radiculopathy, has issue with iron transfusion. Dx Alzheimer's. 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 Hx cleft palate History of Any Multi-Drug Resistant Organisms: None Reported Past Surgical History: Section, Ear Surgery, Hysterectomy, Orthopedic Surgery, Tonsillectomy Additional Past Surgical History / Comment(s): Titanium in right ear/titanium later replaced., rt mastoidectomy,colonoscopy, EGD. Hx cleft palate-Pharyngeal flap. Bilat cataract surgery. Plate screws to lt foot. Past Anesthesia/Blood Transfusion Reactions: Motion Sickness, Postoperative Nausea & Vomiting (PONV) Additional Past Anesthesia/Blood Transfusion Reaction / Comment(s): Vertigo. No blood transfusion to date. Past Psychological History: Anxiety, Depression Smoking Status: Former smoker Past Alcohol Use History: Occasional Additional Past Alcohol Use History / Comment(s): Smoked from age 17 to 29. Past Drug Use History: None Reported - Past Family History Mother Family Medical History: No Reported History Father Family Medical History: Myocardial Infarction ([place]) Brother(s) Family Medical History: Cancer Additional Family Medical History / Comment(s): Lung Cancer. Medications and Allergies Home Medications Medication Instructions Recorded Confirmed Type Lisinopril [Prinivil] 5 mg PO QAM 03/17/15 03/23/25 History Montelukast [Singulair] 10 mg PO HS 10/09/19 03/26/25 History Aspirin EC [Ecotrin Low Dose] 81 mg PO HS 06/29/21 03/23/25 History FLUoxetine HCL [PROzac] 40 mg PO QAM 06/29/21 03/23/25 History Fluticasone Nasal [place] [Flonase 1 spray EA NOSTRIL QAM PRN 10/20/21 03/26/25 History Nasal [place]] Ibuprofen 200 mg PO DIRECTED PRN 10/20/21 03/23/25 History Iron Gentle 28 mg PO QAM 10/20/21 03/23/25 History Omeprazole 40 mg PO QAM 10/20/21 03/23/25 History buPROPion HCL [Wellbutrin XL] 300 mg PO QAM 10/20/21 03/23/25 History polyethylene glycoL 3350 [Miralax] 17 gm PO QAM PRN 10/20/21 03/26/25 History Donepezil [Aricept] 5 mg PO HS 12/12/24 03/26/25 History Memantine [Namenda] 10 mg PO BID 12/12/24 03/26/25 History Acetaminophen [Tylenol Extra 500 mg PO DIRECTED PRN 03/23/25 03/26/25 History Strength] Fluticasone Propion/Salmeterol 1 puff INHALATION BID PRN 03/26/25 03/26/25 History [Advair 250-50 Diskus] traMADol HCl [Ultram] 50 mg PO Q6HR PRN #15 tab 03/26/25 Rx Allergies Allergy/AdvReac Type Severity Reaction Status Date / Time amoxicillin Allergy Unknown Verified 03/26/25 10:24 azithromycin Allergy Rash/Hives Verified 03/26/25 10:24 denosumab [From Prolia] Allergy Unknown Verified 03/26/25 10:24 erythromycin base Allergy Unknown Verified 03/26/25 10:24 latex Allergy Itching/aries Verified 03/26/25 10:24 h methylprednisolone Allergy Unknown Verified 03/26/25 10:24 [From Medrol] naproxen [From Naprosyn] Allergy Itching Verified 03/26/25 10:24 ofloxacin [From Floxin] Allergy Rash/Hives Verified 03/26/25 10:24 Quinolones Allergy Unknown Verified 03/26/25 10:24 Sulfa (Sulfonamide Allergy Rash/Hives Verified 03/26/25 10:24 Antibiotics) sulfamethoxazole Allergy Rash/Hives Verified 03/26/25 10:24 [From Bactrim] trimethoprim [From Bactrim] Allergy Rash/Hives Verified 03/26/25 10:24 "mycin" family Allergy Unknown Uncoded 03/26/25 10:24 Physical Exam Vitals: Vital Signs Temp Pulse Pulse Pulse Resp BP Pulse Ox 03/27/25 06:13 98.8 F 03/27/25 04:42 99.5 F 03/27/25 03:41 99.3 F 74 16 157/81 94 L 03/27/25 00:00 98.3 F 80 16 169/88 94 L 03/26/25 21:30 98.3 F 73 16 167/84 94 L 03/26/25 21:00 67 18 150/81 95 03/26/25 20:30 72 17 156/89 95 03/26/25 20:00 75 15 156/81 96 03/26/25 19:15 73 17 159/86 92 L 03/26/25 18:45 69 15 158/86 98 03/26/25 18:15 72 16 144/77 98 03/26/25 17:45 76 16 157/86 97 03/26/25 17:11 78 18 171/95 98 03/26/25 16:45 70 18 159/87 98 03/26/25 16:20 72 17 161/91 96 03/26/25 16:05 63 18 163/90 94 L 03/26/25 15:50 68 18 141/75 90 L 03/26/25 15:35 60 17 142/81 93 L 03/26/25 15:20 59 L 16 146/73 94 L 03/26/25 15:05 63 15 154/80 96 03/26/25 14:50 58 L 16 138/81 97 03/26/25 14:35 58 L 16 151/87 99 03/26/25 14:21 56 L 16 161/83 96 03/26/25 12:25 70 16 147/89 98 03/26/25 10:57 71 16 148/82 97 Intake and Output 03/26/25 03/27/25 03/27/25 22:59 06:59 14:59 Intake Total 300 Balance 300 Intake: IV 300 Other: Voiding Method Toilet # Voids 2 Weight 59.4 kg 60.9 kg Results 03/27/25 06:50 03/27/25 06:50 Cardiac Enzymes 03/26/25 03/26/25 03/26/25 Range/Units 16:24 19:57 21:31 AST 20 (14-36) U/L Troponin I <0.012 <0.012 (0.000-0.034) ng/mL 03/26/25 03/27/25 Range/Units 21:31 00:36 AST (14-36) U/L Troponin I <0.012 <0.012 (0.000-0.034) ng/mL CBC 03/26/25 03/27/25 Range/Units 21:31 06:50 WBC 9.96 9.13 (4.50-10.00) 10*3/uL RBC 3.70 L 3.77 L (4.10-5.20) 10*6/uL Hgb 11.4 L 11.5 L (12.0-15.0) g/dL Hct 33.9 L 34.4 L (37.2-46.3) % Plt Count 311 303 (140-440) 10*3/uL Comprehensive Metabolic Panel 03/26/25 03/27/25 Range/Units 21:31 06:50 Sodium 135 L 138 (137-145) mmol/L Potassium 3.7 3.7 (3.5-5.1) mmol/L Chloride 102 105 (98-107) mmol/L Carbon Dioxide 24 27 (22-30) mmol/L BUN 14 9 (7-17) mg/dL Creatinine 0.76 0.80 (0.52-1.04) mg/dL Glucose 114 H 113 H (74-99) mg/dL Calcium 9.3 9.4 (8.4-10.2) mg/dL AST 20 (14-36) U/L ALT 10 (4-34) U/L Alkaline Phosphatase 67 (38-126) U/L Total Protein 5.9 L (6.3-8.2) g/dL Albumin 3.5 (3.5-5.0) g/dL Current Medications Generic Name Dose Route Start Last Admin Trade Name Freq PRN Reason Stop Dose Admin Acetaminophen 650 mg 03/26/25 20:26 03/27/25 09:29 Acetaminophen Tab 325 Mg Tab PO 04/25/25 20:25 650 mg Q6HR PRN Administration Mild Pain or Fever > 100.5 Aspirin 81 mg 03/26/25 22:30 03/26/25 23:07 Aspirin 81 Mg PO 81 mg HS HARSHA Administration Atorvastatin Calcium 80 mg 03/27/25 09:00 03/27/25 09:30 Atorvastatin 80 Mg Tab PO 04/26/25 08:59 80 mg DAILY HARSHA Administration Budesonide/Formoterol Fumarate 2 puff 03/26/25 20:28 03/27/25 09:10 Symbicort 80-4.5 Mcg Inhaler INHALATION Not Given RT-BID HARSHA Bupropion HCl 300 mg 03/27/25 09:00 03/27/25 09:37 Bupropion Xl 300 Mg Tab.Er.24h PO 04/26/25 08:59 300 mg QAM HARSHA Administration Donepezil HCl 5 mg 03/26/25 21:00 03/26/25 21:50 Donepezil 5 Mg Tab PO 04/25/25 20:59 5 mg HS HARSHA Administration Fluoxetine HCl 40 mg 03/27/25 09:00 03/27/25 09:30 Fluoxetine Hcl 20 Mg Cap PO 04/26/25 08:59 40 mg QAM HARSHA Administration Fluticasone Propionate 1 spray 03/26/25 20:28 Fluticasone Nasal 50mcg/[place] 16gm Btl EA NOSTRIL 04/25/25 20:27 QAM PRN allergies Lactated Ringer's 1,000 mls @ 20 mls/hr 03/26/25 06:30 03/26/25 16:05 Lactated Ringers IV 04/25/25 06:29 20 mls/hr .Q24H HARSHA Administration Lidocaine HCl 0.1 ml 03/26/25 06:30 Lidocaine 1% (10mg/Ml) For Iv Start INTRADERMA 04/25/25 06:29 PER PROTOCOL PRN IV Start Lisinopril 5 mg 03/27/25 09:00 03/27/25 09:30 Lisinopril 5 Mg Tab PO 04/26/25 08:59 5 mg QAM HARSHA Administration Memantine 10 mg 03/26/25 21:00 03/27/25 09:30 Memantine 10 Mg Tab PO 04/25/25 20:59 10 mg BID HARSHA Administration Metoprolol Tartrate 12.5 mg 03/26/25 21:00 03/27/25 09:30 Metoprolol Tartrate 12.5 Mg Tab PO 04/25/25 20:59 12.5 mg BID HARSHA Administration Montelukast Sodium 10 mg 03/26/25 21:00 03/26/25 21:50 Montelukast 10 Mg Tab PO 04/25/25 20:59 10 mg HS HARSHA Administration Naloxone HCl 0.2 mg 03/26/25 20:26 Naloxone 0.4 Mg/Ml 1 Ml Vial IVP 04/25/25 20:25 Q2M PRN Opioid Reversal Pantoprazole Sodium 40 mg 03/27/25 09:00 03/27/25 09:30 Pantoprazole 40 Mg Tablet PO 04/26/25 08:59 40 mg QAM HARSHA Administration Polyethylene Glycol 17 gm 03/26/25 20:28 Polyethylene Glycol 3350 17 Gm Powd.Pack PO 04/25/25 20:27 QAM PRN Constipation Tramadol HCl 50 mg 03/26/25 22:18 03/27/25 06:12 Tramadol 50 Mg Tab PO 50 mg Q6H PRN Administration Mild to Moderate Pain (1 - 6) Intake and Output 03/26/25 03/27/25 03/27/25 22:59 06:59 14:59 Intake Total 300 Balance 300 Intake: IV 300 Other: Voiding Method Toilet # Voids 2 Weight 59.4 kg 60.9 kg 03/27/25 06:50 03/27/25 06:50
--- NOTE | 2025-03-27 13:42 | P.DS ---
Providers Date of admission: 03/26/25 Expected date of discharge: 03/27/25 Attending physician: Katia Bermudez Consults: 03/26/25 16:12 Consult Physician Stat Consulting Provider: Mal Mccarty Consult Reason/Comments: chest pain Do you want consulting provider notified?: Yes [facility] Course: Discharge Diagnosis: Acute postoperative hypoxia, secondary to postoperative atelectasis. Resolved with use of incentive spirometer. Patient maintaining SpO2 at 95% on room air. Discussed with patient recommend continued use of incentive spirometer after discharge. Atypical chest pain upon awakening from anesthesia. Acute coronary event ruled out. Status post ORIF of olecranon fracture Hypertension Depression Mild dementia Asthma, mild persistent Hospital Course: Patient is a very pleasant 69-year-old female with a past medical history of hea ring impairment, dementia, asthma, hypertension, depression. Patient presented to the hospital on 03/26/2025 for elective same-day surgery for ORIF of olecranon fracture. Postoperatively, patient complained of chest pain and had postoperative hypoxia. Medicine was asked to admit the patient to observation for further evaluation. At time of admission, vital signs revealed blood pressure 167/84, heart rate 73, respiratory rate 16, temp 98.3 F, and SpO2 of 94% on 2 L. X-ray showing mild lingular infiltrate, likely postoperative atelectasis. EKG completed showing normal sinus rhythm at 71 bpm with an incomplete left bundle branch and nonspecific T wave abnormalities. Labs completed. CBC showing mild normocytic anemia with hemoglobin of 11.1. D-dimer elevated at 1.92. BMP showing sodium 135 and blood glucose of 114. Liver profile was unremarkable. Troponin was negative at less than 0.012. proBNP 1830. TSH normal findings at 3.010. Patient was admitted under our services for postoperative hypoxia and cardiac workup. Troponins were trended all negative at less than 0.012 x 4 draws. CTA chest was completed showing a dilated pulmonary artery likely secondary to pulmonary artery hypertension and bilateral lower lobe scattered linear atelectasis but negative for pulmonary emboli or acute cardiopulmonary process. Patient was provided with incentive spirometer to help with improving atelectasis. She was successfully weaned off of oxygen and maintaining SpO2 of 95% on room air. Patient denies having any further episodes of chest pain, shortness of breath, cough or congestion, or any other complaints with the exception of pain in right elbow and lower arm expected from surgical procedure. Movement and sensation right fingers intact. Arm remains in postoperative splint/dressing with sling in place. Patient evaluated by mold filler plastic dolls. Echocardiogram was completed showing a preserved EF of 55% with mild mitral and tricuspid regurgitation and mildly elevated pulmo nary artery pressures with no pericardial effusion. Patient cleared from cardiology perspective for discharge recommending outpatient follow-up in office in 4 weeks. Patient has been cleared by orthopedic surgery and to follow-up in office as scheduled on 04/01/2025. Patient is medically optimized for discharge at this time she was discharged home with increased dose of lisinopril to 10 mg twice daily and started on atorvastatin 40 mg daily. Patient to follow-up outpatient with PCP, Dr. Pereira in 1 to 2 days. Physical exam: Vital signs reviewed and stable. General: Nontoxic, no distress and appears stated age. Derm: Skin warm and dry, normal coloration for ethnicity. Head: Atraumatic, normocephalic and symmetric. Eyes: EOM's intact, no lid lag, and anicteric sclera Mouth: no lip lesions, mucus membranes moist Cardiovascular: regular rate and rhythm with normal S1S2, no murmur, positive posterior tibial pulses bilaterally, and cap refill < 2 seconds. Lungs: Respirations even, regular, and unlabored on room air. Lungs CTA bilaterally, no rhonchi, no rales, no wheezing, and no accessory muscle usage. Abdominal: soft, nontender to palpation, no guarding, no appreciable organomegaly Ext: ROM intact. No gross muscle atrophy, no edema, no contractures Neuro: Speech clear, face symmetrical and CN II-XII grossly intact with no noted focal neuro deficits Psych: Alert and oriented to person, place, time, and situation. Appropriate and pleasant affect. A total of 35 minutes of time were spent preparing this complex discharge summary. Pt was discharged on 03/27/2025 at 1:40 PM. Patient was seen independently by Nurse Practitioner. This document was prepared using Grabbed dictation software. Please allow for errors in sr. payroll processor while rare they do occur. Vijay Regan NP rendered care for this patient independently, reviewed the findings and plan as documented in the note above. I did not physically speak with or examine the patient on this date. Patient Condition at Discharge: Stable Plan - Discharge Summary Discharge Rx Participant: Yes New Discharge Prescriptions: New lisinopriL [Zestril] 10 mg PO BID 30 Days #60 tab traMADol HCl [Ultram] 50 mg PO Q6HR PRN #15 tab PRN Reason: Pain Atorvastatin [Lipitor] 40 mg PO DAILY 30 Days #30 tab Continue Montelukast [Singulair] 10 mg PO HS Aspirin EC [Ecotrin Low Dose] 81 mg PO HS Ibuprofen 200 mg PO DIRECTED PRN PRN Reason: Pain polyethylene glycoL 3350 [Miralax] 17 gm PO QAM PRN PRN Reason: Constipation Omeprazole 40 mg PO QAM [place] 28 mg PO QAM Memantine [Namenda] 10 mg PO BID FLUoxetine HCL [PROzac] 40 mg PO QAM Fluticasone Nasal [place] [Flonase Nasal [place]] 1 spray EA NOSTRIL QAM PRN PRN Reason: allergies buPROPion HCL [Wellbutrin XL] 300 mg PO QAM Donepezil [Aricept] 5 mg PO HS Acetaminophen [Tylenol Extra Strength] 500 mg PO DIRECTED PRN PRN Reason: Pain Fluticasone Propion/Salmeterol [Advair 250-50 Diskus] 1 puff INHALATION BID PRN PRN Reason: SHORTNESS OF BREATHE Discontinued Lisinopril [Prinivil] 5 mg PO QAM Discharge Medication List Montelukast [Singulair] 10 mg PO HS 10/09/19 [History] Aspirin EC [Ecotrin Low Dose] 81 mg PO HS 06/29/21 [History] FLUoxetine HCL [PROzac] 40 mg PO QAM 06/29/21 [History] Fluticasone Nasal [place] [Flonase Nasal [place]] 1 spray EA NOSTRIL QAM PRN 10/20/21 [History] Ibuprofen 200 mg PO DIRECTED PRN 10/20/21 [History] Iron Gentle 28 mg PO QAM 10/20/21 [History] Omeprazole 40 mg PO QAM 10/20/21 [History] buPROPion HCL [Wellbutrin XL] 300 mg PO QAM 10/20/21 [History] polyethylene glycoL 3350 [Miralax] 17 gm PO QAM PRN 10/20/21 [History] Donepezil [Aricept] 5 mg PO HS 12/12/24 [History] Memantine [Namenda] 10 mg PO BID 12/12/24 [History] Acetaminophen [Tylenol Extra Strength] 500 mg PO DIRECTED PRN 03/23/25 [History] Fluticasone Propion/Salmeterol [Advair 250-50 Diskus] 1 puff INHALATION BID PRN 03/26/25 [History] traMADol HCl [Ultram] 50 mg PO Q6HR PRN #15 tab 03/26/25 [Rx] Atorvastatin [Lipitor] 40 mg PO DAILY 30 Days #30 tab 03/27/25 [Rx] lisinopriL [Zestril] 10 mg PO BID 30 Days #60 tab 03/27/25 [Rx] Follow up Appointment(s)/Referral(s): Mal Mccarty MD [STAFF PHYSICIAN] - 4 Weeks (Office will call patient to schedule) Jean Marie Pereira MD [Primary Care Provider] - 1-2 Days Katia Bermudez [Doctor of Osteopathic Medicine] - 04/01/25 9:05 am Patient Instructions/Handouts: *Surgery [facility] - (Anesthesia) Discharge Instructions Outpatient Surgery Activity/Diet/Wound Care/Special Instructions: Orthopedic Postoperative Discharge Instructions Ice & elevate the right elbow. No strenuous/forceful use of right arm. No lifting/gripping/pushing/pulling. Ok to use hand for light activities (eating/dressing/etc). Keep the dressing and splint dry until follow up next week. Cover with a plastic bag to shower. Perform finger [id number] exercises several times daily. Call with any questions or concerns, Discharge Disposition: HOME SELF-CARE
[2025-03-27 16:43] LABS: Chol/HDL Ratio 3.03 Ratio; LDL Cholesterol,Calculated 98.8 mg/dL (0.0-131.0); VLDL Calculation 17.66 mg/dL (5.00-40.00)
[2025-03-27 16:47] VITALS: BP 128/76; PULSE 62; RESP 16
[2025-03-27] MEDS ORDERED: lisinopriL 10 MG TAB PO SCH (21:00)
[2025-03-28] MEDS ORDERED: ATORVASTATIN 40 MG TAB PO SCH (09:00)
== END 2025-03-27 16:30 | disposition home or self-care (01) ==
LOC: OR 09:59 → 3SCARD 20:40 → OR 03-27 16:30
PROVIDERS: ATTEND Orthopaedic Surgery Hand Surgery
DX: S52.021A Displaced fracture of olecranon process without intraarticular extension of right ulna, initial encounter for closed fracture (principal); G89.18 Other acute postprocedural pain; J95.89 Other postprocedural complications and disorders of respiratory system, not elsewhere classified; J96.01 Acute respiratory failure with hypoxia; J98.11 Atelectasis; R07.89 Other chest pain; I10 Essential (primary) hypertension; G30.9 Alzheimer's disease, unspecified; F02.84 Dementia in other diseases classified elsewhere, unspecified severity, with anxiety; F02.83 Dementia in other diseases classified elsewhere, unspecified severity, with mood disturbance; I08.1 Rheumatic disorders of both mitral and tricuspid valves; I44.7 Left bundle-branch block, unspecified; J45.30 Mild persistent asthma, uncomplicated; D50.9 Iron deficiency anemia, unspecified; M81.0 Age-related osteoporosis without current pathological fracture; K21.9 Gastro-esophageal reflux disease without esophagitis; K59.09 Other constipation; R42 Dizziness and giddiness; H90.3 Sensorineural hearing loss, bilateral; R79.1 Abnormal coagulation profile; Z91.89 Other specified personal risk factors, not elsewhere classified; Z79.82 Long term (current) use of aspirin; Z79.83 Long term (current) use of bisphosphonates; Z79.51 Long term (current) use of inhaled steroids; Z79.899 Other long term (current) drug therapy; Z87.891 Personal history of nicotine dependence; Z86.73 Personal history of transient ischemic attack (TIA), and cerebral infarction without residual deficits; Z91.81 History of falling; Z88.0 Allergy status to penicillin; Z88.1 Allergy status to other antibiotic agents; Z88.8 Allergy status to other drugs, medicaments and biological substances; Z88.6 Allergy status to analgesic agent; Z91.040 Latex allergy status; Z88.2 Allergy status to sulfonamides; W19.XXXA Unspecified fall, initial encounter
CPT/HCPCS: 24685; 64415; 94640; 93306; 92610; 85379; 83880; 80061; 80053; 80048; 84443 ×2; 83735; 84484 ×2; 85025 ×2; 83036; 73070; 71045; 71275; C1713; J2250; J1200; J0690; J2405; J3010; J2795; J2704; J1171; Q9967

== ENCOUNTER → 2025-05-20 | Day surgery (SDC) | payer MEDICARE ==
[2025-05-18 15:21] VITALS: BMI 21.2
[2025-05-20 09:21] VITALS: RESP 16; TEMP 98.5
[2025-05-20] MEDS: BENZOCAINE SPRAY 1 EACH MM ONE (10:34)
[2025-05-20] MEDS: MIDAZOLAM 2 MG/2 ML VIAL IVP ONE ×2 (10:36→10:39)
[2025-05-20] MEDS: fentaNYL (PF) 50 MCG/ML 2 ML AMP IVP ONE ×2 (10:36→10:39)
--- NOTE | 2025-05-20 10:50 | P.PCN ---
Date of Procedure: 05/20/25 Operative Findings: TRANSESOPHAGEAL ECHOCARDIOGRAM RECREATIONAL PROGRAMS DIRECTOR: LAURA SOLIS MD, RPVI INDICATION: Rule out cardiac source of embolization SEDATION: Conscious sedation COMPLICATION: None LEVEL OF SEDATION Moderate with sedation length of 10 minutes PROCEDURE DESCRIPTION: After obtaining an informed consent, the patient was brought to transesophageal echocardiogram room. Pulse oximetry and heart monitors were attached to the patient. The patient throat was sprayed using lidocaine. The patient was turned into left lateral position. After that a bite guard was placed. After an appropriate conscious sedation was initiated, the transesophageal echocardiogram was advanced through a bite guard into the mid esophagus. A 2-D echocardiogram images, color Doppler images, continuous wave images, pulse-wave images, of various cardiac structure were performed. After that the transesophageal echocardiogram probe was advanced into the stomach and fixed to obtain transgastric view was. The probe was brought into the mid esophagus. Inter-atrial septum was interrogated using 2D images, color Doppler images, and then contrast study. After that transesophageal echocardiogram was withdrawn out and upon withdrawing the descending thoracic aorta all the way up to the arch was evaluated. CONCLUSION: 1. Aneurysmal interatrial septum with no evidence of shunt 2. Intact left atrial appendage 3. Normal LV systolic function 4. Mild to moderate MR 5. [place] aortic valve with no stenosis or regurgitation 6. Moderate tricuspid regurgitation
[2025-05-20] MEDS: SODIUM CHLORIDE 0.9% 500 ML 500 ML IV ONE (12:11)
[2025-05-20 15:40] VITALS: PULSE 79
[2025-05-20 15:48] VITALS: BP 147/85
== END ==
LOC: CATHCVL 08:48
PROVIDERS: ATTEND Internal Medicine Interventional Cardiology
DX: R42 Dizziness and giddiness (principal); I10 Essential (primary) hypertension; E78.5 Hyperlipidemia, unspecified; K21.9 Gastro-esophageal reflux disease without esophagitis; Z87.09 Personal history of other diseases of the respiratory system; Z86.73 Personal history of transient ischemic attack (TIA), and cerebral infarction without residual deficits; Z87.891 Personal history of nicotine dependence; Z87.19 Personal history of other diseases of the digestive system; Z88.0 Allergy status to penicillin; Z88.1 Allergy status to other antibiotic agents; Z88.2 Allergy status to sulfonamides; Z91.011 Allergy to milk products; Z91.040 Latex allergy status; Z79.02 Long term (current) use of antithrombotics/antiplatelets; Z79.82 Long term (current) use of aspirin; Z79.899 Other long term (current) drug therapy
CPT/HCPCS: 93312; 93320; 93325; 99152; J2250; J3010